=== PATIENT | female | born 1985 | race Caucasian/White ===

== ENCOUNTER 2022-06-23 13:46 | Emergency (ER) | payer OTHER, SELFPAY ==
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
[2022-06-23 14:03] VITALS: BP 117/81; BP 118/73; PULSE 88; PULSE 94; RESP 18; O2SAT 100; BMI 29.5
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
[2022-06-23] MEDS: Acetaminophen 325 MG TABLET 975 MG PO (14:12)
== END 2022-06-23 16:18 | disposition home or self-care (01) ==
PROVIDERS: Emergency Provider Emergency Medicine
DX: S16.1XXA Strain of muscle, fascia and tendon at neck level, initial encounter (principal); S09.90XA Unspecified injury of head, initial encounter; M54.2 Cervicalgia; R51.9 Headache, unspecified; V43.52XA Car driver injured in collision with other type car in traffic accident, initial encounter; Y93.9 Activity, unspecified; Y92.410 Unspecified street and highway as the place of occurrence of the external cause; Y99.9 Unspecified external cause status
CPT/HCPCS: 70450; 72125; 99284

== ENCOUNTER 2022-11-23 23:25 | Emergency (ER) | payer OTHER, SELFPAY ==
--- NOTE | 2022-11-23 | ECG_ITS ---
Test Reason : unknown substance Blood Pressure : / mmHG Vent. Rate : 080 BPM Atrial Rate : 080 BPM P-R Int : 134 ms QRS Dur : 084 ms QT Int : 364 ms P-R-T Axes : 061 034 006 degrees QTc Int : 419 ms Normal sinus rhythm Normal ECG No previous ECGs available Referred By: Marshall Causey Electronically Signed By:THAIS DURAN
--- NOTE | ~2022-11-23 | XR_ITS ---
EXAMINATION: XR CHEST CLINICAL INFORMATION: Hypoxia. COMPARISON: None available. TECHNIQUE: Frontal view of the chest was obtained. FINDINGS: The lung volumes are low. The cardiomediastinal silhouette is within normal limits. There is no focal lung consolidation or pleural effusion. The bony structures and soft tissues are unremarkable. XR/XR chest 1V IMPRESSION: Low lung volumes limits evaluation. No evidence for active cardiopulmonary disease.
--- NOTE | ~2022-11-23 | CT_ITS ---
EXAMINATION: CT HEAD WITHOUT CONTRAST CT CERVICAL SPINE WITHOUT CONTRAST CLINICAL INFORMATION: Found down. Unresponsive. COMPARISON: None available. TECHNIQUE: Contiguous axial imaging was performed through the head and cervical spine without intravenous administration of contrast. Sagittal and coronal reformatted images also obtained. This CT examination was performed using dose optimization techniques as appropriate, variously including the following: *Automated exposure control *Adjustment of mA and/or kV according to patient size (this includes techniques or standardized protocols for targeted exams where dose is matched to indication/reason for exam; i.e. extremities or head) *Use of iterative reconstruction technique DLP: 1342 mGy-cm FINDINGS: Motion slightly limits evaluation. Head: The lateral, third and fourth ventricles are normally outlined. The cortical sulci and basal cisterns are normally outlined as well. There is no acute territorial defect, hemorrhage or midline shift. The extra-axial spaces are unremarkable. Calvarium: Intact. Maxillofacial sinuses and mastoids: Clear as visualized. Cervical spine: The vertebral bodies are normally aligned. The disc spaces are maintained. The bone mineralization is normal. The vertebral body heights are maintained. The spinal canal and neuroforamen are patent. Soft tissues are unremarkable. The visualized upper lung swan are clear. CT/CT head/brain wo IV con IMPRESSION: Minimal motion slightly limits evaluation. No acute intracranial abnormality. No fracture of the cervical spine.
--- NOTE | ~2022-11-23 | CT_ITS ---
EXAMINATION: CT HEAD WITHOUT CONTRAST CT CERVICAL SPINE WITHOUT CONTRAST CLINICAL INFORMATION: Found down. Unresponsive. COMPARISON: None available. TECHNIQUE: Contiguous axial imaging was performed through the head and cervical spine without intravenous administration of contrast. Sagittal and coronal reformatted images also obtained. This CT examination was performed using dose optimization techniques as appropriate, variously including the following: *Automated exposure control *Adjustment of mA and/or kV according to patient size (this includes techniques or standardized protocols for targeted exams where dose is matched to indication/reason for exam; i.e. extremities or head) *Use of iterative reconstruction technique DLP: 1342 mGy-cm FINDINGS: Motion slightly limits evaluation. Head: The lateral, third and fourth ventricles are normally outlined. The cortical sulci and basal cisterns are normally outlined as well. There is no acute territorial defect, hemorrhage or midline shift. The extra-axial spaces are unremarkable. Calvarium: Intact. Maxillofacial sinuses and mastoids: Clear as visualized. Cervical spine: The vertebral bodies are normally aligned. The disc spaces are maintained. The bone mineralization is normal. The vertebral body heights are maintained. The spinal canal and neuroforamen are patent. Soft tissues are unremarkable. The visualized upper lung swan are clear. CT/CT cervical spine wo IV con IMPRESSION: Minimal motion slightly limits evaluation. No acute intracranial abnormality. No fracture of the cervical spine.
[2022-11-23 23:51] VITALS: BP 121/83; PULSE 99; O2SAT 100; BMI 28.9
[2022-11-24] VITALS (7 sets, daily range): BP systolic 88–115; BP diastolic 49–74; PULSE 73–83; RESP 14–17; TEMP 36.7; O2SAT 96–100
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
--- NOTE | 2022-11-24 01:05 | PC.NURSE ---
unable to obtain blood samples
--- NOTE | 2022-11-24 01:05 | MHC.EDTECH ---
t/w attempted labs x2, both straight stick and finger stick. unable to get blood. rn kiwon aware
[2022-11-24] MEDS: 0.9 % Sodium Chloride 1,000 ML 999 ML IV (01:47)
[2022-11-24 02:01] LABS: MANUAL DIFF FLAG NO
[2022-11-24 02:02] LABS: Basophils Percent Auto 0.5 % (0-2); Eosinophils Percent Auto 0.3 % (0-4); Hematocrit 35.2 % (37.0-47.0); Hemoglobin 11.6 g/dl (12.0-16.0); Imm Gran Abs Auto 0.01 X10*3/uL (0.00-0.03); Imm Gran Pct Auto 0.2 % (0.0-0.4); Lymphocytes Absolute Auto 1.3 X10*3/uL (1.2-4.9); Mean Corpuscular Hemoglobin 31.8 pg (27.0-33.0); Mean Corpuscular Volume 96.4 fL (80.0-98.0); Monocytes Absolute Auto 0.5 X10*3/uL (0.1-1.2); Monocytes Percent Auto 8.2 % (2-11); Neutrophils Percent Auto 68.8 % (45-73); Platelet Count 247 X10*3/uL (160-400); Red Blood Count 3.65 X10*6/uL (4.20-5.50); Red Cell Distribution Width 12.2 % (11.0-16.0); White Blood Count 5.8 X10*3/uL (4.8-10.8)
--- NOTE | 2022-11-24 02:03 | PC.NURSE ---
2nd iv site established, labs obtained by PA via ultrasound
[2022-11-24 02:17] LABS: Ethanol 176 mg/dL
[2022-11-24 02:24] LABS: Alanine Aminotransferase 15 U/L (0-31); Albumin Level 4.2 g/dL (3.5-5.0); Alkaline Phosphatase 65 U/L (39-117); Anion Gap 12 (12-20); Aspartate Amino Transferase 19 U/L (5-31); Bilirubin Direct 0.1 mg/dL (0.0-0.5); Bilirubin Total 0.3 mg/dL (0.0-1.0); Blood Urea Nitrogen 9 mg/dL (9-16); Calcium 9.3 mg/dL (8.4-10.2); Carbon Dioxide 23 mmol/L (22-29); Chloride 110 mmol/L (96-108); Creatinine Clr Calc Pharmacy 73.4; Estimated Glomerular Filt Rate 59; Glucose Random 105 mg/dL (60-115); Magnesium 2.2 mg/dL (1.6-2.6); Potassium 3.4 mmol/L (3.3-5.1); Sodium 142 mmol/L (135-145); Total Protein 7.3 g/dL (6.5-8.0)
[2022-11-24 04:59] LABS: Amphetamine Screen Urine Not Detected (Not Detect); Barbiturates, Urine Not Detected (Not Detect); Benzodiazepines Screen Urine Not Detected (Not Detect); Cannabinoid Screen Urine Not Detected (Not Detect); Cocaine Screen Urine Not Detected (Not Detect); Fentanyl, urine Not Detected (Not Detect); Opiate Screen Urine Not Detected (Not Detect); Phencyclidine Screen Urine Not Detected (Not Detect)
--- NOTE | 2022-11-24 05:06 | PC.NURSE ---
pt oob , ambulated in halls, gait steady, tolerating po fluids. pt reported she is depressed, denies any SI/HI
[2022-11-24 05:35] LABS: Appearance Urine Clear; Color Urine Yellow; Glucose Urine UA Negative (Negative); Leukocyte Esterase Urine Negative (Negative); Nitrite Urine Negative (Negative); PH 5.5 (5.0-9.0); Urine Blood Negative (Negative); Urine Ketones Negative (Negative); Urine Protein Negative (Neg-Trace)
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
--- NOTE | 2022-11-24 09:00 | PC.NURSE ---
care team at bedside
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
== END 2022-11-24 10:22 | disposition still patient (30) ==
PROVIDERS: Physician Assistant; Emergency Provider Internal Medicine
DX: F10.129 Alcohol abuse with intoxication, unspecified (principal); R40.4 Transient alteration of awareness; R09.02 Hypoxemia; R11.2 Nausea with vomiting, unspecified; R51.9 Headache, unspecified; M54.2 Cervicalgia; R06.02 Shortness of breath; Y90.6 Blood alcohol level of 120-199 mg/100 ml; Z79.899 Other long term (current) drug therapy
CPT/HCPCS: 36415; 70450; 71045; 72125; 80048; 80076; 80307; 81003; 82550; 83735; 85025; 93005; 96360; 99285

== ENCOUNTER 2023-07-20 15:55 | Emergency (ER) | payer OTHER, SELFPAY ==
--- NOTE | 2023-07-20 | ECG_ITS ---
Test Reason : SLOW HEART RATE Blood Pressure : / mmHG Vent. Rate : 081 BPM Atrial Rate : 081 BPM P-R Int : 126 ms QRS Dur : 076 ms QT Int : 350 ms P-R-T Axes : 054 036 026 degrees QTc Int : 406 ms Normal sinus rhythm Normal ECG When compared with ECG of 23-NOV-2022 23:54, No significant change was found Referred By: Generic ED Physician Electronically Signed By:PATRICIA SHEPPARD
[2023-07-20 16:41] VITALS: BP 117/78; PULSE 87; RESP 18; TEMP 36.7; O2SAT 99; BMI 28.3
--- NOTE | 2023-07-20 16:46 | ED.GENADULT ---
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 Patient states that over the last day she has felt generally unwell with nausea, vomiting, and intermittent dizziness. Patient denies any lightheadedness, abdominal pain, fever, chills, blurry vision, double vision, loss of vision, chest pain, difficulty breathing, shortness of breath, back pain, night sweats, pain with urination, increased urinary frequency, increased urinary urgency, blood in her urine or stool, syncope or a near syncopal episode, recent trauma or falls, bowel incontinence, bladder incontinence, bowel retention, bladder retention, or any other complaints at this time. Onset (ago): day(s) Relieving factors: none Exacerbating factors: none Associated symptoms: nausea/vomiting Treatments prior to arrival: none Related Data Home Medications ?Medication ?Instructions ?Recorded ?Confirmed dolutegravir 50 mg tablet (Tivicay) 50 mg PO DAILY 11/24/22 11/24/22 emtricitabine 200 mg-tenofovir 1 tab PO DAILY 11/24/22 11/24/22 disoproxil fumarate 300 mg tablet Allergies Allergy/AdvReac Type Severity Reaction Status Date / Time No Known Allergies Allergy Verified 07/20/23 16:42 Review of Systems Constitutional: Constitutional: Reports no additional constitutional complaints, Denies chills, Denies fever(s) and Denies night sweats Eyes: Eyes: Reports no additional eye complaints, Denies blurry vision, Denies change in vision, Denies diplopia, Denies eye discharge, Denies loss of vision and Denies eye pain ENT: Reports dizziness (intermittent) Cardiovascular: Cardiovascular: Reports no additional cardiovascular complaints, Denies chest pain, Denies lightheadedness, Denies Loss of Consciousness and Denies dyspnea Respiratory: Respiratory: Reports no additional respiratory complaints and Denies dyspnea Gastrointestinal: Gastrointestinal: Reports no additional gastrointestinal complaints, Denies abdominal pain, Denies melena, Denies hematochezia, Denies change in bowel habits, Denies change in stool character, Reports nausea and Reports vomiting Genitourinary: Genitourinary: Denies hematuria, Denies urinary frequency, Denies dysuria, Denies urinary incontinence, Denies urinary hesitancy and Denies urinary urgency Musculoskeletal: Musculoskeletal: Reports no additional musculoskeletal complaints, Denies numbness and Denies tingling Neurologic: Reports dizziness (intermittent), Denies loss of vision, Denies numbness and Denies tingling Psychiatric: Psychiatric: Reports no additional psychiatric complaints Endocrine: Endocrine: Reports no additional endocrine complaints Hematologic/Lymphatic: Hematologic/Lymphatic: Reports no additional hematologic/lymphatic complaints Allergic/Immunologic: Allergic/Immunologic: Reports no additional allergic/immunologic complaints PMFSH Past Medical History Attestation statement: The following information was validated with the patient. Source: old records reviewed and nursing notes reviewed Social History Social History Alcohol intake: current Advance Directives: No Advance Directives Information Provided: No Do you have a plan to hurt others: No Plan Physical Exam ED Vital Signs: Vital Signs - 24 hr 07/20/23 16:41 07/20/23 18:15 07/20/23 20:00 Temperature 98.1 F 98.7 F 98.0 F Pulse Rate 87 80 78 Respiratory Rate 18 16 18 Blood Pressure 117/78 112/78 110/65 Pulse Oximetry 99 100 100 Oxygen Delivery Method Room Air Room Air Room Air 07/20/23 20:16 Temperature 98.0 F Pulse Rate 78 Respiratory Rate 18 Blood Pressure 110/65 Pulse Oximetry 100 Oxygen Delivery Method Room Air BMI result Body Mass Index 28.3 Const General: cooperative, no acute distress, alert and awake Nutritional Appearance: well nourished Orientation/consciousness: patient oriented x3 Limitations: no limitations HENMT Head: Yes normal to inspection and Yes atraumatic Ears: hearing grossly normal bilaterally and external ears normal General nose exam: Normal external nose present, no nasal discharge noted and no epistaxis Face and sinus: Yes normal facial exam, No abrasion and No laceration Mouth: Normal oral and palatal mucosa present, no drooling and no muffled voice Eyes General: appearance normal, both eyes and all related structures Periorbital: periorbital findings normal Eyelids: Yes eyelids normal Conjunctivae: conjunctivae normal Pupils: Equal, round and reactive pupils present EOM: EOMs intact bilaterally Neck Neck: Yes normal visual inspection, Yes full ROM and Yes no lymphadenopathy Chest Chest palpation & inspection: normal inspection of the chest Resp Effort & Inspection: normal respiratory effort and able to speak in complete sentences GI Inspection: Yes normal to inspection Palpation (GI): Soft to palpation, not firm, nontender and no guarding Neuro General: patient oriented x3 and moves all extremities Cranial nerves: Yes Equal, round and reactive pupils present Cognition (Neuro): normal cognition Motor exam (neuro): 5/5 motor strength present throughout Sensory Exam: Normal double simultaneous stimulation for sensation Coordination: [id number] test normal Extrem General: Yes normal to inspection, Yes full ROM and Yes capillary refill normal Psych Appearance: grossly normal Mental Status: mental status grossly normal Affect: normal affect Attitude: cooperative Thought process: Normal thought process present Thought content: Normal thought content present Insight: Good insight present (Psych) Course Course Course Narrative: RME: 37-year-old female presents to ED sensation of heart beating slow, nausea vomiting diarrhea. Labs EKG ordered. Patient to be evaluated ED Medications Administered Discontinued Medications Generic Name Dose Route Start Last Admin Trade Name Freq PRN Reason Stop Dose Admin Sodium Chloride 1,000 mls @ 999 mls/hr 07/20/23 18:15 07/20/23 19:05 Ns IV 07/20/23 19:15 999 mls/hr .Q1H1M HUSSAIN Administration Ondansetron HCl 4 mg 07/20/23 18:10 07/20/23 19:20 Ondansetron Hcl 4 Mg/2 Ml Vial IVPUSH 07/20/23 18:11 4 mg ONCE ONE Administration Medical Decision Making Medical Decision Making [facility] Narrative: Patient is a 37 year old assigned female at with no reported medical history presenting to the emergency department today with dizziness, nausea, and vomiting. Patient's physical exam was unremarkable. Patient's blood work was unremarkable. Patient's urine showed no acute process. Patient's EKG was unremarkable. I explained my physical exam findings as well as all test results to the patient. I answered all questions asked by the patient. I stressed the importance of the patient taking her medication as prescribed. I stressed the importance of the patient following up with her primary care provider. I stressed the importance of the patient returning to the emergency department immediately if her symptoms were to worsen or if she were to develop any dizziness, shortness of breath, difficulty breathing, chest pain, blurry vision, loss of vision, nausea, vomiting, abdominal pain, fever, chills, back pain, or any other complaints. Patient verbalized agreement and understanding with this treatment plan and discharge. Differential Diagnosis Differential Diagnoses: The differential diagnosis associated with the presentation includes Near syncopal episode Dizziness Nausea Vomiting Admission/Observation Consideration of admission/observation: Escalation of care including admission/observation considered Patient would have been admitted to the hospital had her work up had any findings where hospital admission was appropriate and her clinical presentation warranted hospital admission. Lab Data [facility] Lab Attestation statement: I reviewed the patient's lab results. My interpretation of these results are in the [facility] Rationale portion of this note. 07/20/23 17:06 07/20/23 17:06 Labs: Lab Results 07/20/23 07/20/23 07/20/23 Range/Units 17:06 17:58 18:09 WBC 5.0 (4.8-10.8) X10*3/uL RBC 4.25 (4.20-5.50) X10*6/uL Hgb 13.5 (12.0-16.0) g/dl Hct 42.1 (37.0-47.0) % MCV 99.1 H (80.0-98.0) fL MCH 31.8 (27.0-33.0) pg MCHC 32.1 (31.0-35.0) g/dl RDW 11.9 (11.0-16.0) % Plt Count 224 (160-400) X10*3/uL MPV 12.9 H (9.4-12.3) fL Immature Gran % (Auto) 0.2 (0.0-0.4) % Neut % (Auto) 59.7 (45-73) % Lymph % (Auto) 28.9 (20-40) % [place] % (Auto) 9.2 (2-11) % Eos % (Auto) 1.2 (0-4) % Baso % (Auto) 0.8 (0-2) % Lymph # (Auto) 1.5 (1.2-4.9) X10*3/uL [place] # (Auto) 0.5 (0.1-1.2) X10*3/uL Eos # (Auto) 0.1 (0.0-0.4) X10*3/uL Baso # (Auto) 0.0 (0.0-0.2) X10*3/uL Abs Immat Gran (auto) 0.01 (0.00-0.03) X10*3/uL Absolute Neuts (auto) 3.0 (2.0-8.3) x10*3/uL Absolute Nucleated RBC 0.000 (0.0-0.012) X10*3/uL Nucleated RBC % (auto) 0.0 (0.0-0.2) /100WBC PT 12.2 (11.1-13.3) SEC INR 1.0 (0.9-1.1) APTT 30.2 (26.0-36.8) SEC Sodium 138 (135-145) mmol/L Potassium 3.9 (3.3-5.1) mmol/L Chloride 108 (96-108) mmol/L Carbon Dioxide 22 (22-29) mmol/L Anion Gap 12 (12-20) BUN 10 (9-16) mg/dL Creatinine 0.79 (0.5-1.4) mg/dL Estim Creat Clear Calc 90.3 Estimated GFR > 60 Random Glucose 103 (60-115) mg/dL Calcium 9.7 (8.4-10.2) mg/dL Total Bilirubin 0.4 (0.0-1.0) mg/dL AST 25 (5-31) U/L ALT 26 (0-31) U/L Alkaline Phosphatase 78 (39-117) U/L Troponin I High Sens < 2.7 (<3.5-17.0) ng/L Total Protein 8.0 (6.5-8.0) g/dL Albumin 4.4 (3.5-5.0) g/dL Beta HCG, Quant < 2 mIU/mL Urine Color Yellow Urine Appearance Cloudy Urine pH 6.0 (5.0-9.0) Ur Specific [place] 1.015 (1.005-1.025) Urine Protein Negative (Neg-Trace) mg/dL Urine Glucose (UA) Negative (Negative) mg/dL Urine Ketones Negative (Negative) mg/dL Urine Blood Negative (Negative) Urine Nitrite Negative (Negative) Ur Leukocyte Esterase Negative (Negative) Influenza Type A (PCR) NEGATIVE (Negative) Influenza Type B (PCR) NEGATIVE (Negative) RSV RNA Qual (PCR) NEGATIVE (Negative) SARS-CoV-2 RNA (RT-PCR) NEGATIVE (Negative) Independent Interpretation I performed an independent interpretation of an: EKG Interpretation: Vent. Rate: 081 BPM Atrial Rate: 081 BPM P-R Int: 126 ms QRS Dur: 076 ms QT Int: 350 ms P-R-T Axes: 054 036 026 degrees QTc Int: 406 ms Normal sinus rhythm Normal ECG When compared with ECG of 23-NOV-2022 23:54, No significant change was found DD/ 1606 Discharge Plan Discharge Clinical Impression: Nausea, Near syncope Patient Disposition: Home, Self-Care Instructions: Acute Nausea and Vomiting (ED), Near Syncope (ED) Additional Instructions: Follow up with your primary care provider. Return to the emergency department immediately if your symptoms worsen or if you develop any dizziness, shortness of breath, difficulty breathing, chest pain, blurry vision, loss of vision, nausea, vomiting, abdominal pain, fever, chills, back pain, or any other complaints. Prescriptions: No Action emtricitabine-tenofovir (TDF) 200-300 mg tablet 1 tab PO DAILY Tivicay 50 mg tablet 50 mg PO DAILY Referrals: [facility] [Provider Group] (Call to establish and follow up with a primary care provider. If you already have a primary care provider, please follow up with them.) [facility] [Provider Group] [facility] [Provider Group] Stand Alone Forms: Work/School Release Interventions: ED Discharge Assessment Last Done: 07/20/23 20:16 Discharge Date/Time: 07/20/23 20:17 Print Language: Icelandic
[2023-07-20 17:11] LABS: MANUAL DIFF FLAG NO
[2023-07-20 17:22] LABS: Basophils Percent Auto 0.8 % (0-2); Eosinophils Absolute Auto 0.1 X10*3/uL (0.0-0.4); Eosinophils Percent Auto 1.2 % (0-4); Hematocrit 42.1 % (37.0-47.0); Hemoglobin 13.5 g/dl (12.0-16.0); Imm Gran Abs Auto 0.01 X10*3/uL (0.00-0.03); Imm Gran Pct Auto 0.2 % (0.0-0.4); Lymphocytes Absolute Auto 1.5 X10*3/uL (1.2-4.9); Lymphocytes Percent Auto 28.9 % (20-40); Mean Corpuscular HGB Conc 32.1 g/dl (31.0-35.0); Mean Corpuscular Hemoglobin 31.8 pg (27.0-33.0); Mean Corpuscular Volume 99.1 fL (80.0-98.0); Mean Platelet Volume 12.9 fL (9.4-12.3); Monocytes Absolute Auto 0.5 X10*3/uL (0.1-1.2); Monocytes Percent Auto 9.2 % (2-11); Neutrophils Percent Auto 59.7 % (45-73); Platelet Count 224 X10*3/uL (160-400); Red Blood Count 4.25 X10*6/uL (4.20-5.50); Red Cell Distribution Width 11.9 % (11.0-16.0)
[2023-07-20 17:36] LABS: Alanine Aminotransferase 26 U/L (0-31); Albumin Level 4.4 g/dL (3.5-5.0); Alkaline Phosphatase 78 U/L (39-117); Anion Gap 12 (12-20); Aspartate Amino Transferase 25 U/L (5-31); Bilirubin Total 0.4 mg/dL (0.0-1.0); Blood Urea Nitrogen 10 mg/dL (9-16); Calcium 9.7 mg/dL (8.4-10.2); Carbon Dioxide 22 mmol/L (22-29); Chloride 108 mmol/L (96-108); Creatinine Clr Calc Pharmacy 90.3; Estimated Glomerular Filt Rate > 60; Glucose Random 103 mg/dL (60-115); Potassium 3.9 mmol/L (3.3-5.1); Sodium 138 mmol/L (135-145)
[2023-07-20 17:38] LABS: HCG Quantitative < 2 mIU/mL
[2023-07-20 17:39] LABS: Troponin-I High Sensitivity < 2.7 ng/L (<3.5-17.0)
[2023-07-20 17:54] LABS: Influenza A PCR NEGATIVE (Negative); Influenza B PCR NEGATIVE (Negative); Resp Syncy Virus RNA Qual PCR NEGATIVE (Negative); SARS COV2 PCR INHOUSE NEGATIVE (Negative)
[2023-07-20 18:15] VITALS: BP 112/78; PULSE 80; RESP 16; TEMP 37.1; O2SAT 100
[2023-07-20 18:15] LABS: Appearance Urine Cloudy; Color Urine Yellow; Glucose Urine UA Negative (Negative); Leukocyte Esterase Urine Negative (Negative); Nitrite Urine Negative (Negative); Specific Gravity - Urine 1.015 (1.005-1.025); Urine Blood Negative (Negative); Urine Ketones Negative (Negative); Urine Protein Negative (Neg-Trace)
[2023-07-20 18:20] LABS: Prothrombin Time 12.2 SEC (11.1-13.3)
[2023-07-20 18:22] LABS: Partial Thromboplastin Time 30.2 SEC (26.0-36.8)
[2023-07-20] MEDS: 0.9 % Sodium Chloride 1,000 ML 999 ML IV (19:05)
[2023-07-20] MEDS: ondansetron HCL 4 MG/2 ML VIAL IVPUSH (19:20)
[2023-07-20 20:00] VITALS: BP 110/65; PULSE 78; RESP 18; TEMP 36.7; O2SAT 100
[2023-07-20 20:16] VITALS: BP 110/65; PULSE 78; RESP 18; TEMP 36.7; O2SAT 100
== END 2023-07-20 20:17 | disposition home or self-care (01) ==
PROVIDERS: Physician Assistant; Emergency Provider Internal Medicine
DX: R11.0 Nausea (principal); R55 Syncope and collapse; Z03.818 Encounter for observation for suspected exposure to other biological agents ruled out
CPT/HCPCS: 0241U; 36415; 80053; 81003; 84484; 84702; 85025; 85610; 85730; 93005; 96374; 99284; J2405

== ENCOUNTER → 2023-07-20 16:06 | Outpatient (BNV) | payer OTHER, SELFPAY | PROVIDERS: Emergency Provider Internal Medicine; Visit Provider Internal Medicine | DX: R00.8 Other abnormalities of heart beat (principal) | CPT/HCPCS: 93010 ==

== ENCOUNTER 2024-04-18 22:52 | Emergency (ER) | payer OTHER, SELFPAY ==
--- NOTE | ~2024-04-18 | XR_ITS ---
CLINICAL HISTORY: cough 1 view chest x-ray Comparison: CR/SR - XR CHEST 1V - 11/24/22 01:54 EDT Findings: No consolidation or effusion. Normal size heart. No acute fracture. IMPRESSION: 1. No acute findings. This document has been electronically signed by: Juan Rivera MD on 04/18/2024 23:46:57
[2024-04-18 22:55] VITALS: BP 110/71; PULSE 91; RESP 16; TEMP 36.8; O2SAT 99; BMI 28.2
[2024-04-18 23:51] LABS: Influenza A PCR NEGATIVE (Negative); Influenza B PCR NEGATIVE (Negative); Resp Syncy Virus RNA Qual PCR NEGATIVE (Negative); SARS COV2 PCR INHOUSE NEGATIVE (Negative)
--- NOTE | 2024-04-19 01:20 | ED_ITS ---
HPI - General Adult General Chief complaint: Upper Respiratory Symptoms Stated complaint: cold symptoms, chest pain Time Seen by Provider: 04/19/24 00:50 Source: patient, RN notes reviewed and old records reviewed Mode of arrival: ambulatory Limitations: no limitations History of Present Illness ED Provider: Brandin CURTIS narrative: 38-year-old female presents for evaluation of cough, nausea, headache and body aches. Her symptoms started 3 days ago. She denies any sick contacts. Denies any recent travel. She reports some chest pain with coughing. She states that there is no chance that she was , she lives alone. She reports some lower abdominal pain and burning with urination. She reports a history of constipation but reports that she has been having more bowel movements than usual Related Data Home Medications ?Medication ?Instructions ?Recorded ?Confirmed dolutegravir 50 mg tablet (Tivicay) 50 mg PO DAILY 11/24/22 11/24/22 emtricitabine 200 mg-tenofovir 1 tab PO DAILY 11/24/22 11/24/22 disoproxil fumarate 300 mg tablet Previous Rx's ?Medication ?Instructions ?Recorded cefuroxime axetil 250 mg tablet 250 mg PO Q12H #10 tabs 04/19/24 Allergies Allergy/AdvReac Type Severity Reaction Status Date / Time No Known Allergies Allergy Verified 04/18/24 22:56 Review of Systems Constitutional: Constitutional: Reports body ache(s), Reports chills, Denies fever(s), Reports headache(s), Reports malaise and Reports weakness Eyes: Eyes: Denies blurry vision ENT: Reports headache(s) and Denies sore throat Cardiovascular: Cardiovascular: Reports chest pain and Denies dyspnea Respiratory: Respiratory: Reports cough and Denies dyspnea Gastrointestinal: Gastrointestinal: Denies abdominal pain, Denies diarrhea, Denies loose stools, Reports nausea and Denies vomiting Musculoskeletal: Musculoskeletal: Denies back pain Integumentary/Breasts: Skin/Breast: Denies rash Neurologic: Reports headache(s) and Reports weakness PMFSH Social History Social History Alcohol intake: current Advance Directives: No Advance Directives Information Provided: Yes Do you have a plan to hurt others: No Plan Physical Exam ED Vital Signs: Vital Signs - 24 hr 04/18/24 22:55 Temperature 98.2 F Pulse Rate 91 Respiratory Rate 16 Blood Pressure 110/71 Pulse Oximetry 99 Oxygen Delivery Method Room Air BMI result Body Mass Index 28.2 Const General: healthy appearing, comfortable, no acute distress, alert and awake Nutritional Appearance: well nourished Orientation/consciousness: patient oriented x3 HENMT Head: Yes normocephalic and Yes atraumatic Throat: Yes posterior oropharynx normal Eyes Eyelids: Yes eyelids normal Conjunctivae: conjunctivae normal Sclerae: sclerae normal Corneas: corneas normal Pupils: Equal, round and reactive pupils present EOM: EOMs intact bilaterally Neck Neck: Yes full ROM Resp Effort & Inspection: normal respiratory effort, able to speak in complete sentences, no audible wheezes and not labored Auscultation: clear to auscultation bilaterally Cardio Rate: regular rate Rhythm: regular rhythm GI Inspection: No distended Palpation (GI): Soft to palpation, not firm, nontender, no guarding and not rigid Skin General skin exam: elasticity normal Neuro General: patient oriented x3 Cranial nerves: Yes Equal, round and reactive pupils present and Yes Bilaterally intact EOM present Cognition (Neuro): normal cognition Extrem Other: Moving all extremities well without any obvious deformities Medical Decision Making Medical Decision Making [facility] Narrative: 38-year-old female presents for evaluation of multiple complaints including flu- like symptoms, her viral swabs were negative. Her chest x-ray was clear, no evidence of pneumonia or pleural effusions. She also complains of lower abdominal pain and burning with urination added on a urinalysis and a test. The patient is adamant that she was not . She is quite well appearing with stable vital signs. Her symptoms are most likely related to a viral illness. She has no abdominal tenderness on exam to suggest infectious process or surgical abdomen Differential Diagnosis Differential Diagnoses: The differential diagnosis associated with the presentation includes Abdominal pain Viral syndrome UTI Constipation Influenza Lab Data [facility] Lab Attestation statement: I reviewed the patient's lab results. Patient's urinalysis consistent with a UTI Labs: Lab Results 04/18/24 04/19/24 Range/Units 22:59 01:38 Urine Color Yellow Urine Appearance Cloudy Urine pH 5.5 (5.0-9.0) Ur Specific [place] 1.025 (1.005-1.025) Urine Protein Trace (Neg-Trace) mg/dL Urine Glucose (UA) Negative (Negative) mg/dL Urine Ketones Negative (Negative) mg/dL Urine Blood Trace H (Negative) Urine Nitrite Positive H (Negative) Ur Leukocyte Esterase Small (1+) H (Negative) Urine RBC 0-2 (0-2) /HPF Urine WBC 21-50 H (0-5) /HPF Ur Squamous Epith Cells 11-20 (0-2) /HPF Urine Bacteria 4+ (None Seen) Hyaline Casts 0-2 (0-2) /LPF Urine Test NEGATIVE (NEGATIVE) Influenza Type A (PCR) NEGATIVE (Negative) Influenza Type B (PCR) NEGATIVE (Negative) RSV RNA Qual (PCR) NEGATIVE (Negative) SARS-CoV-2 RNA (RT-PCR) NEGATIVE (Negative) Independent Interpretation I performed an independent interpretation of an: Plain X-Ray Interpretation: No focal infiltrates Radiology Impression Discussion of test interpretation with radiology: I have reviewed the radiologist's reading. Radiologist Impression: Findings: No consolidation or effusion. Normal size heart. No acute fracture. IMPRESSION: 1. No acute findings. This document has been electronically signed by: Juan Rivera MD on 04/18/2024 23:46:57 Discharge Plan Discharge Clinical Impression: Urinary tract infection Patient Disposition: Home, Self-Care Instructions: Urinary Tract Infection in Women (ED) Additional Instructions: You have a urinary tract infection. Take cefuroxime twice daily for the next 5 days. Drink lots of fluids. Follow-up with your primary doctor, return for new or worsening symptoms Prescriptions: New cefuroxime axetil 250 mg tablet 250 mg PO Q12H Qty: 10 0RF No Action emtricitabine-tenofovir (TDF) 200-300 mg tablet 1 tab PO DAILY Tivicay 50 mg tablet 50 mg PO DAILY Print Language: Cape Verdean
[2024-04-19 01:47] LABS: Appearance Urine Cloudy; Color Urine Yellow; Glucose Urine UA Negative (Negative); Leukocyte Esterase Urine Small (1+) (Negative); Nitrite Urine Positive (Negative); PH 5.5 (5.0-9.0); Specific Gravity - Urine 1.025 (1.005-1.025); UMIC TRIGGER UACC YES; UPreg QC Valid YES; Urine Blood Trace (Negative); Urine Ketones Negative (Negative); Urine Pregnancy NEGATIVE (NEGATIVE); Urine Protein Trace mg/dL (Neg-Trace)
[2024-04-19 01:52] LABS: Bacteria Urine 4+ (None Seen); Hyaline Casts Urine 0-2 /LPF (0-2); RBC Urine 0-2 /HPF (0-2); UACC Culture Trigger YES; WBC Urine 21-50 /HPF (0-5)
[2024-04-19] MEDS: cefuroxime axetiL 250 MG TABLET PO (02:49)
[2024-04-19 02:57] VITALS: BP 112/65; PULSE 85; RESP 16; TEMP 36.8; O2SAT 100
--- NOTE | 2024-04-19 02:58 | PC.NURSE ---
pt denies sore throat.
[2024-04-19 03:01] VITALS: BP 112/65; PULSE 85; RESP 16; TEMP 36.8; O2SAT 100
== END 2024-04-19 03:03 | disposition home or self-care (01) ==
PROVIDERS: Physician Assistant; Emergency Provider Emergency Medicine Emergency Medical Services; PCP Family Medicine
DX: N39.0 Urinary tract infection, site not specified (principal); B96.20 Unspecified Escherichia coli [E. coli] as the cause of diseases classified elsewhere; R10.30 Lower abdominal pain, unspecified; R05.9 Cough, unspecified; Z03.818 Encounter for observation for suspected exposure to other biological agents ruled out
CPT/HCPCS: 0241U; 71045; 81001; 81025; 87086; 87088; 87186; 99283; 99284

== ENCOUNTER → 2024-04-18 23:00 | Outpatient (BNV) | payer OTHER, SELFPAY | PROVIDERS: Visit Provider Student in an Organized Health Care Education/Training Program | DX: R07.9 Chest pain, unspecified (principal) | CPT/HCPCS: 71045 ==

== ENCOUNTER 2025-01-11 05:18 | Inpatient (IN) | payer OTHER, SELFPAY ==
[2025-01-11] VITALS (8 sets, daily range): BP systolic 92–111; BP diastolic 49–69; PULSE 64–87; RESP 16–18; TEMP 36.6–37; O2SAT 96–100; BMI 30.5; BMI 31.4
--- NOTE | ~2025-01-11 | NM_ITS ---
EXAMINATION: NM BILIARY TRACT CLINICAL INFORMATION: Upper abdominal pain COMPARISON: Ultrasound abdomen performed earlier today at 6:24 AM TECHNIQUE: Following intravenous administration of 5 mCi of technetium 99m mebrofenin, imaging over right upper quadrant were obtained up to 60 minutes. At 60 minutes 1.5 mcg of CCK was given and further imaging was obtained up to 30 minutes. FINDINGS: There is normal hepatic uptake without focal defects. CBD is visualized by 13 minutes. Gallbladder is visualized by 19 minutes. Post-CCK the gallbladder ejection fraction at 30 minutes is 13% and abnormal. On the preceding ultrasound patient has echogenic gallstones. NM/NM hepatobiliary w pharm IMPRESSION: Normal hepatic uptake. Patent cystic duct and CBD. Abnormal gallbladder ejection fraction of 13% at 30 minutes. Electronically signed by: Dl Villalobos MD 01/11/2025 04:00 PM EDT
--- NOTE | ~2025-01-11 | US_ITS ---
EXAMINATION: US ABDOMEN COMPLETE CLINICAL INFORMATION: Upper abdominal pain.. COMPARISON: None available. TECHNIQUE: Real-time ultrasound of the abdomen using grayscale technique. FINDINGS: PANCREAS: No peripancreatic fluid collections. ABDOMINAL AORTA: The proximal, mid, and distal segments are normal in caliber. INFERIOR VENA CAVA: Visualized portions are normal. LIVER: Liver measures 15 cm. Normal contour. Normal parenchyma. No solid or cystic lesion detected. No intrahepatic biliary ductal dilatation. GALLBLADDER: Fluid-filled. Gallbladder wall measures 3 mm. Trace of pericholecystic fluid. No sonographic Mayes sign elicited by the technologist. COMMON BILE DUCT: 4 mm. RIGHT KIDNEY: 10 cm. Normal echotexture. Normal renal cortical thickness. No hydronephrosis. There is a 1.6 cm anechoic lesion at the corticomedullary junction renal cortex of the midportion without color Doppler flow interrogation. LEFT KIDNEY: 10 cm. Normal echotexture. Normal renal cortical thickness. No hydronephrosis. No gross solid or cystic lesion.. SPLEEN: 11 cm. FREE FLUID: None. US/US abdomen complete IMPRESSION: Concerning acalculous cholecystitis versus hepatitis versus prolonged fasting. 1.6 cm cyst, right kidney. Electronically signed by: Dustin Hall MD 01/11/2025 09:02 AM EDT
--- NOTE | 2025-01-11 05:19 | ECG_ITS ---
Test Reason : chest pain Blood Pressure : */* mmHG Vent. Rate : 81 BPM Atrial Rate : 81 BPM P-R Int : 132 ms QRS Dur : 76 ms QT Int : 354 ms P-R-T Axes : 64 53 40 degrees QTcB Int : 411 ms Normal sinus rhythm with sinus arrhythmia Normal ECG When compared with ECG of 20-Jul-2023 16:06, No significant change was found Referred By: Generic ED Physician Electronically Signed By: JOBY CORDOVA MD
[2025-01-11 06:00] LABS: MANUAL DIFF FLAG NO
[2025-01-11 06:01] LABS: Hematocrit 38.8 % (37.0-47.0); Hemoglobin 12.4 g/dl (12.0-16.0); Imm Gran Abs Auto 0.02 X10*3/uL (0.00-0.03); Imm Gran Pct Auto 0.3 % (0.0-0.4); Lymphocytes Absolute Auto 1.8 X10*3/uL (1.2-4.9); Mean Corpuscular HGB Conc 32.0 g/dl (31.0-35.0); Mean Corpuscular Hemoglobin 30.6 pg (27.0-33.0); Mean Corpuscular Volume 95.8 fL (80.0-98.0); NRBC Abs Auto 0.000 X10*3/uL (0.0-0.012); NRBC Pct Auto 0.0 /100WBC (0.0-0.2); Platelet Count 229 X10*3/uL (160-400); Red Blood Count 4.05 X10*6/uL (4.20-5.50); White Blood Count 6.6 X10*3/uL (4.8-10.8)
--- NOTE | 2025-01-11 06:11 | PC.NURSE ---
PT from triage complaining of epigastric pain, substernal chest pain, and a headache. PT rated all pain 10/10 and reported these symptoms onset x3 weeks ago and have been intermittent since, denies N/V/D. NSR ON TELE
[2025-01-11 06:21] LABS: COVID-19 Test Negative (Negative); IDNOW Serial# 55D5AD1C; IDNOW Serial# 58CA691E; Influenza B2 Negative (Negative)
--- NOTE | 2025-01-11 06:24 | ED.CHESTPAIN ---
HPI - Chest Pain General Chief Complaint: Chest Pain Stated Complaint: Chest, back, upper abd pain Time Seen by Provider: 01/11/25 06:13 Source: patient Mode of arrival: ambulatory Limitations: no limitations History of Present Illness ED Provider: DR. Billings HPI narrative: 39-year-old female came in for evaluation of chest pain/upper abdominal pain x2 weeks unclear aggravating factors, unclear relieving factors, no nausea, vomiting, diarrhea, no dysuria, no frequency urination, normal bowel movement this morning patient reports last bowel movement was no blood and normal color but sometimes has a black bowel movement. Admits to drinking alcohol few times a week last drink was 2 days ago, no surgical history,, no vomiting blood. Related Data Home Medications ?Medication ?Instructions ?Recorded ?Confirmed dolutegravir 50 mg tablet (Tivicay) 50 mg PO DAILY 11/24/22 11/24/22 emtricitabine 200 mg-tenofovir 1 tab PO DAILY 11/24/22 11/24/22 disoproxil fumarate 300 mg tablet Previous Rx's ?Medication ?Instructions ?Recorded cefuroxime axetil 250 mg tablet 250 mg PO Q12H #10 tabs 04/19/24 Allergies Allergy/AdvReac Type Severity Reaction Status Date / Time No Known Allergies Allergy Verified 01/11/25 05:30 Review of Systems Review of Systems: All other systems are reviewed and are negative Constitutional: Reports as per HPI and Reports no additional constitutional complaints Eyes: Reports as per HPI and Reports no additional eye complaints Reports system reviewed and no additional complaints, except as documented Cardiovascular: Reports as per HPI and Reports no additional cardiovascular complaints Respiratory: Reports as per HPI and Reports no additional respiratory complaints Gastrointestinal: Reports as per HPI and Reports no additional gastrointestinal complaints Genitourinary: Reports no additional female genitourinary complaints Musculoskeletal: Reports no additional musculoskeletal complaints Skin/Breast: Reports system reviewed and no additional complaints, except as docu Psychiatric: Reports no additional psychiatric complaints Endocrine: Reports no additional endocrine complaints Hematologic/Lymphatic: Reports no additional hematologic/lymphatic complaints Allergic/Immunologic: Reports no additional allergic/immunologic complaints Reports system reviewed and no additional complaints, except as documented and Reports Abnormal speech present FOR[facility] Social History Social History Alcohol intake: current Alcohol intake frequency: holidays/special occasions only Smoked in Last 30 Days: No Use of substances other than those prescribed or required for medical reasons: No Advance Directives: No Advance Directives Information Provided: Yes Do you have a plan to hurt others: No Plan Physical Exam Vital Signs: Vital Signs: Last Vital Signs Temp 97.8 F 01/11/25 10:48 Pulse 75 01/11/25 16:02 Resp 17 01/11/25 16:02 BP 98/63 01/11/25 16:02 Pulse Ox 96 01/11/25 16:02 O2 Del Method Room Air 01/11/25 16:02 BMI result Body Mass Index 30.5 Vital signs have been reviewed and appear to be correct. Blood pressure elevated. Heart rate normal. Respiratory rate normal. Temperature normal. Oxygen saturation normal. Appearance: Alert. Oriented X3. No acute distress. Head: Normal external exam. Normocephalic. Atraumatic. No Kc signs noted. No raccoon eyes noted Eyes: PERRLA. EOMI. Conjunctiva and sclera normal. Eyelids normal. ENT: TM's Normal. Pharynx normal. Uvula midline. Moist mucous membranes. No trismus noted. No drooling noted. No muffled voice noted. Neck: Normal inspection. Neck supple. FROM. No adenopathy. Thyroid Normal. No meningeal signs. No neck mass noted. CVS: Normal heart rate and rhythm. Heart sound normal. No murmurs noted. Pulses normal throughout. Respiratory: No respiratory distress. Painless inspiration. Breath sounds normal. No wheezes/rales/rhonchi noted. Chest nontender. No accessory muscle usage noted or decreased air movement noted. Abdomen: Soft, mild epigastric tenderness, no guarding, no rebound tenderness. Bowel sounds normal in all 4 quadrants. No distention noted. No organomegaly noted. No visible injury noted. Back: No CVA tenderness. Full range of motion noted. Skin: Skin warm and dry. Normal skin color. Normal skin turgor. No rashes/lesions/lacerations noted. Extremities: No lower extremity edema. Extremities exhibit normal range of motion. Extremities nontender. Neuro: Oriented X 3. Cranial nerve exam: II-XII are grossly intact No motor deficit. No sensory deficit. Reflexes normal. Course Reevaluation(s) Reevaluation #1: Abdominal pain, CT suggesting acalculous acute cholecystitis, case discussed with Dr. Adame who recommended HIDA scan, case discussed and signed out to Dr. Greco for check on the HIDA scan and consult with Dr. Adame. Time: 15:29 Reevaluation #2: Time: 17:24 Date: 01/11/25 Provider: Lester Greco MD I assumed care of this patient from my colleague, Dr. Billings at 16:00 hours patient presents emergency department for evaluation of upper abdominal pain and possible acute acalculous cholecystitis pending HIDA scan results. On my exam the patient did have right upper quadrant tenderness with a positive Mayes sign as well as mild diffuse abdominal tenderness. Radiologist that interpreted the HIDA scan states that there are echogenic gallstones and I did non the preceding ultrasound. Patient had a diminished gallbladder ejection fraction at 30 minutes of 13%. I did initially discuss these results with Dr. Adame and he did discuss admission with the patient. The patient wanted to discuss this with her family and after this discussion she is willing to stay in the hospital for management of her pain. She told me that she is having moderate right upper quadrant pain associated with mild nausea. Patient was given morphine 4 mg IV and Zofran 4 mg IV. I did discuss admission over tiger text with Dr. Adame and the patient will be admitted to his service for further treatment. Medications Administered Discontinued Medications Generic Name Dose Route Start Last Admin Trade Name Freq PRN Reason Stop Dose Admin Al Hydroxide/Mg Hydroxide 30 ml 01/11/25 06:21 01/11/25 06:44 Magnesium Hydrox/Alum Hydrox 30 Ml Oral.Susp PO 01/11/25 06:22 30 ml ONCE ONE Administration Famotidine 20 mg 01/11/25 06:21 01/11/25 06:44 Famotidine/Pf 20 Mg/2 Ml Vial IVPUSH 01/11/25 06:22 20 mg ONCE ONE Administration Ketorolac Tromethamine 15 mg 01/11/25 10:52 01/11/25 11:02 Ketorolac Tromethamine 15 Mg/Ml Vial IVPUSH 01/11/25 10:53 15 mg ONCE ONE Administration Sucralfate 1 gm 01/11/25 06:21 01/11/25 06:44 Sucralfate Oral Suspension 1 Gm/10 Ml Oral.Susp PO 01/11/25 06:22 1 gm ONCE ONE Administration Medical Decision Making Differential Diagnosis Differential Diagnoses: The differential diagnosis associated with the presentation includes (Gastritis, cholecystitis, pancreatitis, colitis, diverticulitis, acute appendicitis, kidney stone, pyelonephritis, , electrolyte derangement, severe anemia.) Admission/Observation Consideration of admission/observation: Escalation of care including admission/observation considered Consult Healthcare Provider Management of the patient was discussed with: Health Care Facility Administrator (Dr. Adame) Lab Data MDM Lab Attestation statement: I reviewed the patient's lab results. 01/11/25 05:50 01/11/25 05:50 Labs: Lab Results 01/11/25 01/11/25 01/11/25 Range/Units 05:50 06:33 07:06 WBC 6.6 (4.8-10.8) X10*3/uL RBC 4.05 L (4.20-5.50) X10*6/uL Hgb 12.4 (12.0-16.0) g/dl Hct 38.8 (37.0-47.0) % MCV 95.8 (80.0-98.0) fL MCH 30.6 (27.0-33.0) pg MCHC 32.0 (31.0-35.0) g/dl RDW 11.9 (11.0-16.0) % Plt Count 229 (160-400) X10*3/uL MPV 12.0 (9.4-12.3) fL Immature Gran % (Auto) 0.3 (0.0-0.4) % Neut % (Auto) 58.5 (45-73) % Lymph % (Auto) 27.4 (20-40) % [place] % (Auto) 9.4 (2-11) % Eos % (Auto) 3.6 (0-4) % Baso % (Auto) 0.8 (0-2) % Lymph # (Auto) 1.8 (1.2-4.9) X10*3/uL [place] # (Auto) 0.6 (0.1-1.2) X10*3/uL Eos # (Auto) 0.2 (0.0-0.4) X10*3/uL Baso # (Auto) 0.1 (0.0-0.2) X10*3/uL Abs Immat Gran (auto) 0.02 (0.00-0.03) X10*3/uL Absolute Neuts (auto) 3.9 (2.0-8.3) x10*3/uL Absolute Nucleated RBC 0.000 (0.0-0.012) X10*3/uL Nucleated RBC % (auto) 0.0 (0.0-0.2) /100WBC D-Dimer High Sensitivty NG/ML Sodium 136 (135-145) mmol/L Potassium 4.2 (3.3-5.1) mmol/L Chloride 110 H (96-108) mmol/L Carbon Dioxide 20 L (22-29) mmol/L Anion Gap 10 L (12-20) BUN 17 H (9-16) mg/dL Creatinine 0.71 (0.5-1.4) mg/dL Estim Creat Clear Calc 101.3 Estimated GFR > 60 POC Glucose 107 (60-115) mg/dL Random Glucose 104 (60-115) mg/dL Calcium 8.6 D (8.4-10.2) mg/dL Magnesium 1.9 (1.6-2.6) mg/dL Total Bilirubin 0.3 (0.0-1.0) mg/dL AST 19 (5-31) U/L ALT 26 (0-31) U/L Alkaline Phosphatase 71 (39-117) U/L Troponin I High Sens < 2.7 (<3.5-17.0) ng/L Total Protein 7.2 (6.5-8.0) g/dL Albumin 4.1 (3.5-5.0) g/dL Lipase 34 (8-78) U/L Beta HCG, Quant < 2 mIU/mL Urine Color Urine Appearance Urine pH (5.0-9.0) Ur Specific [place] (1.005-1.025) Urine Protein (Neg-Trace) mg/dL Urine Glucose (UA) (Negative) mg/dL Urine Ketones (Negative) mg/dL Urine Blood (Negative) Urine Nitrite (Negative) Ur Leukocyte Esterase (Negative) Urine RBC (0-2) /HPF Urine WBC (0-5) /HPF Ur Squamous Epith Cells (0-2) /HPF Urine Bacteria (None Seen) Hyaline Casts (0-2) /LPF Stool Occult Blood NEGATIVE (NEGATIVE) COVID-19 (JENNIE) Negative (Negative) COVID-19 Clin Com See Note Influenza Type A (ELIAZAR) Negative (Negative) Influenza Type B (ELIAZAR) Negative (Negative) Influenza A & B Note See Note 01/11/25 01/11/25 Range/Units 07:22 08:19 WBC (4.8-10.8) X10*3/uL RBC (4.20-5.50) X10*6/uL Hgb (12.0-16.0) g/dl Hct (37.0-47.0) % MCV (80.0-98.0) fL MCH (27.0-33.0) pg MCHC (31.0-35.0) g/dl RDW (11.0-16.0) % Plt Count (160-400) X10*3/uL MPV (9.4-12.3) fL Immature Gran % (Auto) (0.0-0.4) % Neut % (Auto) (45-73) % Lymph % (Auto) (20-40) % [place] % (Auto) (2-11) % Eos % (Auto) (0-4) % Baso % (Auto) (0-2) % Lymph # (Auto) (1.2-4.9) X10*3/uL [place] # (Auto) (0.1-1.2) X10*3/uL Eos # (Auto) (0.0-0.4) X10*3/uL Baso # (Auto) (0.0-0.2) X10*3/uL Abs Immat Gran (auto) (0.00-0.03) X10*3/uL Absolute Neuts (auto) (2.0-8.3) x10*3/uL Absolute Nucleated RBC (0.0-0.012) X10*3/uL Nucleated RBC % (auto) (0.0-0.2) /100WBC D-Dimer High Sensitivty 189 NG/ML Sodium (135-145) mmol/L Potassium (3.3-5.1) mmol/L Chloride (96-108) mmol/L Carbon Dioxide (22-29) mmol/L Anion Gap (12-20) BUN (9-16) mg/dL Creatinine (0.5-1.4) mg/dL Estim Creat Clear Calc Estimated GFR POC Glucose (60-115) mg/dL Random Glucose (60-115) mg/dL Calcium (8.4-10.2) mg/dL Magnesium (1.6-2.6) mg/dL Total Bilirubin (0.0-1.0) mg/dL AST (5-31) U/L ALT (0-31) U/L Alkaline Phosphatase (39-117) U/L Troponin I High Sens (<3.5-17.0) ng/L Total Protein (6.5-8.0) g/dL Albumin (3.5-5.0) g/dL Lipase (8-78) U/L Beta HCG, Quant mIU/mL Urine Color Yellow Urine Appearance Clear Urine pH 6.5 (5.0-9.0) Ur Specific [place] 1.010 (1.005-1.025) Urine Protein Negative (Neg-Trace) mg/dL Urine Glucose (UA) Negative (Negative) mg/dL Urine Ketones Negative (Negative) mg/dL Urine Blood Negative (Negative) Urine Nitrite Negative (Negative) Ur Leukocyte Esterase Negative (Negative) Urine RBC 0-2 (0-2) /HPF Urine WBC 0-5 (0-5) /HPF Ur Squamous Epith Cells 0-2 (0-2) /HPF Urine Bacteria None Seen (None Seen) Hyaline Casts 0-2 (0-2) /LPF Stool Occult Blood (NEGATIVE) COVID-19 (JENNIE) (Negative) COVID-19 Clin Com Influenza Type A (ELIAZAR) (Negative) Influenza Type B (ELIAZAR) (Negative) Influenza A & B Note Independent Interpretation I performed an independent interpretation of an: Ultrasound (Abdominal:Concerning acalculous cholecystitis versus hepatitis versus prolonged fasting. 1.6 cm cyst, right kidney.) Radiology Impression Discussion of test interpretation with radiology: I have reviewed the radiologist's reading. Discharge Plan Discharge Patient Disposition: Admitted As Inpatient Print Language: Cook Islander
[2025-01-11 06:27] LABS: Alanine Aminotransferase 26 U/L (0-31); Albumin Level 4.1 g/dL (3.5-5.0); Alkaline Phosphatase 71 U/L (39-117); Anion Gap 10 (12-20); Aspartate Amino Transferase 19 U/L (5-31); Blood Urea Nitrogen 17 mg/dL (9-16); Calcium 8.6 mg/dL (8.4-10.2); Carbon Dioxide 20 mmol/L (22-29); Chloride 110 mmol/L (96-108); Creatinine Clr Calc Pharmacy 101.3; Estimated Glomerular Filt Rate > 60; Lipase 34 U/L (8-78); Magnesium 1.9 mg/dL (1.6-2.6); Potassium 4.2 mmol/L (3.3-5.1); Sodium 136 mmol/L (135-145); Total Protein 7.2 g/dL (6.5-8.0)
[2025-01-11 06:29] LABS: Troponin-I High Sensitivity < 2.7 ng/L (<3.5-17.0)
[2025-01-11] MEDS: Sucralfate Oral Suspension 1 GM/10 ML ORAL.SUSP PO (06:44)
[2025-01-11] MEDS: Magnesium Hydrox/Alum Hydrox 30 ML ORAL.SUSP PO (06:44)
[2025-01-11 06:55] LABS: OBS Int Ctl Valid YES; OBS1 NEGATIVE (NEGATIVE)
[2025-01-11 07:09] LABS: Glucose, Whole Blood 107 mg/dL (60-115)
[2025-01-11 07:40] LABS: D Dimer High Sensitivity 189 NG/ML
[2025-01-11 08:26] LABS: Appearance Urine Clear; Glucose Urine UA Negative (Negative); PH 6.5 (5.0-9.0); Specific Gravity - Urine 1.010 (1.005-1.025)
--- NOTE | 2025-01-11 12:40 | PM.CNGS ---
History of Present Illness Consult details Consult date: 01/11/25 Requesting physician: Lindsey Billings Narrative: 39-year-old female patient presenting today to the emergency department with complaints of chest, epigastric, back, and left shoulder pain. 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 She denies nausea, vomiting, diarrhea, constipation, anorexia or bloody stool. She does admit to drinking several times weekly. In the ER she was noted to be tender in the upper abdomen. Laboratories revealed a normal WBC and LFTs. Ultrasound report notes the gallbladder to be fluid filled with trace pericholecystic fluid and no sonographic Mayes sign. Impression was ?concerning acalculous cholecystitis versus hepatitis versus prolonged fasting.? Review of the ultrasound however does reveal gallstones within the gallbladder at the neck. She is scheduled for a HIDA scan later today. Review of Systems Review of Systems: Yes all other systems are reviewed and are negative PMFSH Social History Social History Alcohol intake: current Alcohol intake frequency: holidays/special occasions only Smoked in Last 30 Days: No Use of substances other than those prescribed or required for medical reasons: No Advance Directives: No Advance Directives Information Provided: Yes Do you have a plan to hurt others: No Plan Meds Allergies Allergy/AdvReac Type Severity Reaction Status Date / Time No Known Allergies Allergy Verified 01/11/25 05:30 Home Medications ?Medication ?Instructions ?Recorded ?Confirmed ?Last Taken ?Type dolutegravir 50 mg tablet (Tivicay) 50 mg PO DAILY 11/24/22 11/24/22 Unknown History emtricitabine 200 mg-tenofovir 1 tab PO DAILY 11/24/22 11/24/22 Unknown History disoproxil fumarate 300 mg tablet budesonide 32 mcg/actuation nasal 32 mcg intranasal DAILY 01/11/25 Unknown History spray budesonide-formoterol HFA 80 2 inh inhalation DAILY 01/11/25 Unknown History mcg-4.5 mcg/actuation aerosol inhaler (Symbicort) escitalopram oxalate 10 mg tablet 10 mg PO DAILY 01/11/25 Unknown History Physical Exam Vital Signs: Vital Signs: Last Vital Signs Temp 97.8 F 01/11/25 10:48 Pulse 68 01/11/25 10:48 Resp 18 01/11/25 10:48 BP 102/59 L 01/11/25 10:48 Pulse Ox 100 01/11/25 10:48 O2 Del Method Room Air 01/11/25 10:48 BMI result Body Mass Index 30.5 Const: General: cooperative and no acute distress Nutritional Appearance: well nourished Orientation/consciousness: patient oriented x3 Limitations: no limitations HEENT: Head: Yes normocephalic and Yes atraumatic Ears: hearing grossly normal bilaterally Resp: Effort & Inspection: normal respiratory effort, no audible wheezes, no cough and no respiratory distress Cardio: Jugular venous distension: no JVD GI: Inspection: Yes normal to inspection Palpation (GI): Soft to palpation, not firm, Tenderness to palpation present (GI) in the epigastrum, in the LUQ and in the RUQ; Mayes's sign negative and with no rebound tenderness, no guarding and not rigid Percussion: Yes normal to percussion Auscultation: normal bowel sounds Rectal Exam - Female: deferred Skin: Other: Warm, dry, no rash Neuro: General: patient oriented x3 Extrem: General: Yes normal to inspection and Yes no clubbing, cyanosis or edema Results Labs 01/11/25 05:50 01/11/25 05:50 Labs: Abnormal lab results 01/11/25 Range/Units 05:50 RBC 4.05 L (4.20-5.50) X10*6/uL Chloride 110 H (96-108) mmol/L Carbon Dioxide 20 L (22-29) mmol/L Anion Gap 10 L (12-20) BUN 17 H (9-16) mg/dL Short CBC 01/11/25 Range/Units 05:50 WBC 6.6 (4.8-10.8) X10*3/uL Hgb 12.4 (12.0-16.0) g/dl Hct 38.8 (37.0-47.0) % Plt Count 229 (160-400) X10*3/uL BMP 01/11/25 05:50 Sodium 136 Potassium 4.2 Chloride 110 H Carbon Dioxide 20 L BUN 17 H Creatinine 0.71 Calcium 8.6 D Liver Function 01/11/25 Range/Units 05:50 Total Bilirubin 0.3 (0.0-1.0) mg/dL AST 19 (5-31) U/L ALT 26 (0-31) U/L Alkaline Phosphatase 71 (39-117) U/L Albumin 4.1 (3.5-5.0) g/dL Urine 01/11/25 Range/Units 08:19 Urine Color Yellow Urine Appearance Clear Urine pH 6.5 (5.0-9.0) Ur Specific [place] 1.010 (1.005-1.025) Urine Protein Negative (Neg-Trace) mg/dL Urine Glucose (UA) Negative (Negative) mg/dL All other labs normal. Assessment and Plan (1) Acute cholecystitis due to biliary calculus: Status: Acute Plan 39-year-old female patient presenting with complaints of chest, abdominal, back and shoulder pain found to be tender in the epigastric and right upper quadrant with a negative Mayes sign. Laboratories revealed normal WBC and LFTs. Ultrasound is suggestive of possible acalculous cholecystitis although gallstones are noted in the gallbladder. We will await results of the HIDA scan. If positive we will admit for further management of acute cholecystitis. HIDA revealed reduced EF suggestive of biliary dyskinesia. Patient still having abdominal pain, therefore will admit for pain control, possible lap/open cholecystectomy. Procedures Date of Service Date of Service: 01/11/25
[2025-01-11] MEDS: Dextrose 5 % and Lactated Ring 1,000 ML 125 ML IVCONT (18:43)
--- NOTE | 2025-01-11 19:11 | PHA.MEDREC ---
Addendum entered by Erlin Culver, PharmD 01/11/25 19:42: MED REC CHECKED BY [facility] Original Note: Pharmacy Consult ? Medication Reconciliation Pharmacy has completed the medication reconciliation. Spoke with pt, utilizing edge brusher and she confirmed her medications with us. Pt confirmed she takes her Budesonide nasal spray once daily and her Symbicort inhaler once daily.
--- NOTE | 2025-01-11 20:26 | HO.NURTONUR ---
39-year-old female, full code, NKA, NPO, A+Ox3, kazakh speaking, patient presenting today to the emergency department with complaints of chest, epigastric, back, and left shoulder pain. 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 She denies nausea, vomiting, diarrhea, constipation, anorexia or bloody stool. She does admit to drinking several times weekly. In the ER she was noted to be tender in the upper abdomen. Laboratories revealed a normal WBC and LFTs. Ultrasound report notes the gallbladder to be fluid filled with trace pericholecystic fluid and no sonographic Mayes sign. Impression was ?concerning acalculous cholecystitis versus hepatitis versus prolonged fasting.? Review of the ultrasound however does reveal gallstones within the gallbladder at the neck. She is scheduled for a HIDA scan later today. Plan HIDA revealed reduced EF suggestive of biliary dyskinesia. Patient still having abdominal pain, therefore will admit for pain control, possible lap/open cholecystectomy. Abdominal US : IMPRESSION: Concerning acalculous cholecystitis versus hepatitis versus prolonged fasting. 1.6 cm cyst, right kidney. She has D5LR running at 125ml/hr
[2025-01-11] MEDS: oxyCODONE HCl Immed Release 5 MG TABLET PO (21:44)
[2025-01-12] VITALS (10 sets, daily range): BP systolic 94–111; BP diastolic 53–69; PULSE 65–83; RESP 12–18; TEMP 36.1–37; O2SAT 94–100
[2025-01-12] MEDS: Dextrose 5 % and Lactated Ring 1,000 ML 125 ML IVCONT ×4 (02:27→23:28)
[2025-01-12 05:47] LABS: MANUAL DIFF FLAG NO
[2025-01-12 05:52] LABS: Hematocrit 37.2 % (37.0-47.0); Hemoglobin 12.0 g/dl (12.0-16.0); Imm Gran Abs Auto 0.01 X10*3/uL (0.00-0.03); Imm Gran Pct Auto 0.3 % (0.0-0.4); Lymphocytes Absolute Auto 1.7 X10*3/uL (1.2-4.9); Mean Corpuscular HGB Conc 32.3 g/dl (31.0-35.0); Mean Corpuscular Hemoglobin 31.0 pg (27.0-33.0); Mean Corpuscular Volume 96.1 fL (80.0-98.0); NRBC Abs Auto 0.000 X10*3/uL (0.0-0.012); NRBC Pct Auto 0.0 /100WBC (0.0-0.2); Platelet Count 227 X10*3/uL (160-400); Red Blood Count 3.87 X10*6/uL (4.20-5.50); White Blood Count 3.9 X10*3/uL (4.8-10.8)
[2025-01-12 06:13] LABS: Alanine Aminotransferase 19 U/L (0-31); Albumin Level 3.7 g/dL (3.5-5.0); Alkaline Phosphatase 64 U/L (39-117); Anion Gap 11 (12-20); Aspartate Amino Transferase 20 U/L (5-31); Blood Urea Nitrogen 14 mg/dL (9-16); Calcium 8.5 mg/dL (8.4-10.2); Carbon Dioxide 23 mmol/L (22-29); Chloride 109 mmol/L (96-108); Creatinine Clr Calc Pharmacy 88.0; Estimated Glomerular Filt Rate > 60; Potassium 4.3 mmol/L (3.3-5.1); Sodium 139 mmol/L (135-145); Total Protein 6.6 g/dL (6.5-8.0)
[2025-01-12] MEDS: oxyCODONE HCl Immed Release 5 MG TABLET PO (09:41)
--- NOTE | 2025-01-12 10:12 | P.PNGS_ITS ---
Subjective Subjective Date of Service: 01/12/25 Interval history: Has continued RUQ pain this morning, somewhat relieved with analgesics. Some nausea as well. Would like to proceed with surgery today. Physical Exam 2 Vital Signs: Vital Signs: Last Vital Signs Temp 96.9 F 01/12/25 07:10 Pulse 72 01/12/25 07:10 Resp 15 01/12/25 07:10 BP 98/54 L 01/12/25 07:10 Pulse Ox 100 01/12/25 07:10 O2 Del Method Room Air 01/12/25 07:10 BMI result Body Mass Index 31.4 Const: General: comfortable, no acute distress and alert O rientation/consciousness: patient oriented x3 Resp: Effort & Inspection: normal respiratory effort GI: Other: corpulent abdomen RUQ tender to palpation Percussion: Yes normal to percussion Skin: General skin exam: no rashes or lesions noted and no jaundice Neuro: General: patient oriented x3 and moves all extremities Objective Data Active Medications Calcium Carbonate (Calcium Carbonate 750 Mg Tab.Chew) 750 mg PO Q4H PRN PRN Reason: Heartburn Hydromorphone HCl (Hydromorphone Hcl 0.5 Mg/0.5 Ml Syringe) 0.5 mg IVPUSH Q3H PRN; Protocol PRN Reason: Pain, Severe (Pain Scale 7-10) Acetaminophen (Ofirmev) 1,000 mg in 100 mls @ 400 mls/hr IV Q6H PRN PRN Reason: Pain, Mild (Pain Scale 1-3) Last Infusion: 01/12/25 09:53 Dose: Infused Documented By: MAURICIO Dextrose/Lactated Ringer's (D5lr) 1,000 mls @ 125 mls/hr IVCONT .Q8H [facility] Last Admin: 01/12/25 02:27 Dose: 125 mls/hr Documented By: JOSSY Piperacillin Sod/Tazobactam (Sod 3.375 gm/ Sodium Chloride) 50 mls @ 100 mls/hr IV Q6H [facility] Last Infusion: 01/12/25 06:04 Dose: Infused Documented By: JOSSY Magnesium Hydroxide (Milk Of Magnesia 30 Ml Oral.Susp) 30 ml PO DAILY PRN PRN Reason: Constipation Melatonin (Melatonin 3 Mg Tablet) 6 mg PO BEDTIME PRN PRN Reason: Insomnia Ondansetron HCl (Ondansetron Hcl 4 Mg/2 Ml Vial) 4 mg IVPUSH QID PRN PRN Reason: Nausea Last Admin: 01/12/25 08:56 Dose: 4 mg Documented By: MAURICIO Oxycodone HCl (Oxycodone Hcl Immed Release 5 Mg Tablet) 5 mg PO Q6H PRN PRN Reason: Pain, Moderate(Pain Scale 4-6) Last Admin: 01/12/25 09:41 Dose: 5 mg Documented By: ROMEL Sodium Chloride (0.9 % Sodium Chloride Flush 3 Ml Syringe) 3 ml IVFLUSH QSHIFT HUSSAIN Last Admin: 01/12/25 08:53 Dose: Not Given Documented By: MAURICIO Non-Admin Reason: IV Running Labs 01/12/25 05:29 01/12/25 05:29 Labs: Laboratory Results - last 24 hr 01/12/25 05:29 MCV 96.1 MCH 31.0 MCHC 32.3 RDW 11.9 Plt Count 227 MPV 12.3 Immature Gran % (Auto) 0.3 Neut % (Auto) 38.0 L Lymph % (Auto) 44.4 H Barren % (Auto) 11.2 H Eos % (Auto) 5.1 H Baso % (Auto) 1.0 Lymph # (Auto) 1.7 Barren # (Auto) 0.4 Eos # (Auto) 0.2 Baso # (Auto) 0.0 Abs Immat Gran (auto) 0.01 Absolute Neuts (auto) 1.5 L Absolute Nucleated RBC 0.000 Nucleated RBC % (auto) 0.0 Anion Gap 11 L Estim Creat Clear Calc 88.0 Estimated GFR > 60 Random Glucose 111 Calcium 8.5 Total Bilirubin 0.5 Direct Bilirubin 0.1 AST 20 ALT 19 Alkaline Phosphatase 64 Total Protein 6.6 Albumin 3.7 Procedures Date of Service Date of Service: 01/12/25 Progress Note: A&P Assessment and plan (1) Dysfunctional gallbladder: Status: Acute Plan HIDA showed biliary dyskinesia yesterday. Has persistent RUQ pain and nausea this morning. VSS. Abd exam with RUQ tenderness. Cont NPO, IVF. Risks, benefits, alternatives of laparoscopic possible open cholecystectomy were reviewed with the patient including but not limited to bleeding, infection, numbness, pain, poor healing, injury to the liver, bowel or bile ducts, leak, retained stones and the patient wishes to proceed.? She has been added onto the OR schedule for today.?All questions were answered. Time Spent With Patient Time: Total time managing care of this patient today ____ minutes. Quality Stroke Does the patient have a stroke diagnosis?: No VTE Prior VTE?: No VTE Risk Level:: Surgical - moderate VTE Device Contraindication: N/A - Device Ordered VTE Drug Contraindication: Treatment Not Indicated
--- NOTE | 2025-01-12 11:44 | HO.ANESPROP2 ---
Documented by User: Jesusita Farfan NP 01/12/25 11:45 HPI - Anesthesia Eval Consult details Narrative: 39 yr old female for lap cholecystectomy HIV: on Truvada, Tivicay PMFSH Active Problems Active Problems: All Active Problems (Updated 01/11/25 @ 17:32 by Lester Greco MD) Dysfunctional gallbladder (Acute) Gallstone (Acute) Abdominal pain (Acute) Acute cholecystitis due to biliary calculus (Acute) Social History Social History Household Members: None Housing: Apartment Do you presently have visiting nurse or other home services: No Alcohol intake: current Alcohol intake frequency: holidays/special occasions only Patient Tobacco Use Status: Never used Tobacco Smoked in Last 30 Days: No Use of substances other than those prescribed or required for medical reasons: No Currently Displaying Signs/Symptoms of Drug Intoxication Withdrawal: No Have you been hit, kicked, punched, or otherwise hurt by someone within the past year? If so, by whom?: No Do you feel safe in your current relationship?: No Current Relationship Is there a partner from a previous relationship who is making you feel unsafe now?: No Are you made to feel afraid or neglected: No Advance Directives: No Advance Directives Information Provided: Yes Do you have a plan to hurt others: No Plan Recently lost weight without trying: No How much weight loss: Not applicable Eating poorly because of decreased appetite: No Nutrition screen score: 0 Nutrition Risks: No Nutritional Risk Patient : No : No Poor oral hygiene: No service: No Meds Allergies Allergy/AdvReac Type Severity Reaction Status Date / Time No Known Allergies Allergy Verified 01/11/25 05:30 Active Medications: Current Medications Calcium Carbonate (Calcium Carbonate 750 Mg Tab.Chew) 750 mg PO Q4H PRN PRN Reason: Heartburn Hydromorphone HCl (Hydromorphone Hcl 0.5 Mg/0.5 Ml Syringe) 0.5 mg IVPUSH Q3H PRN; Protocol PRN Reason: Pain, Severe (Pain Scale 7-10) Acetaminophen (Ofirmev) 1,000 mg in 100 mls @ 400 mls/hr IV Q6H PRN PRN Reason: Pain, Mild (Pain Scale 1-3) Last Infusion: 01/12/25 09:53 Dose: Infused Dextrose/Lactated Ringer's (D5lr) 1,000 mls @ 125 mls/hr IVCONT .Q8H [facility] Last Admin: 01/12/25 10:51 Dose: 125 mls/hr Piperacillin Sod/Tazobactam (Sod 3.375 gm/ Sodium Chloride) 50 mls @ 100 mls/hr IV Q6H [facility] Last Infusion: 01/12/25 06:04 Dose: Infused Magnesium Hydroxide (Milk Of Magnesia 30 Ml Oral.Susp) 30 ml PO DAILY PRN PRN Reason: Constipation Melatonin (Melatonin 3 Mg Tablet) 6 mg PO BEDTIME PRN PRN Reason: Insomnia Ondansetron HCl (Ondansetron Hcl 4 Mg/2 Ml Vial) 4 mg IVPUSH QID PRN PRN Reason: Nausea Last Admin: 01/12/25 08:56 Dose: 4 mg Oxycodone HCl (Oxycodone Hcl Immed Release 5 Mg Tablet) 5 mg PO Q6H PRN PRN Reason: Pain, Moderate(Pain Scale 4-6) Last Admin: 01/12/25 09:41 Dose: 5 mg Sodium Chloride (0.9 % Sodium Chloride Flush 3 Ml Syringe) [facility] Last Admin: 01/12/25 08:53 Dose: Not Given Home Medications ?Medication ?Instructions ?Recorded ?Confirmed ?Last Taken ?Type dolutegravir 50 mg tablet (Tivicay) 50 mg PO DAILY 11/24/22 01/11/25 01/09/25 History emtricitabine 200 mg-tenofovir 1 tab PO DAILY 11/24/22 01/11/25 01/09/25 History disoproxil fumarate 300 mg tablet (Truvada) budesonide 32 mcg/actuation nasal 32 mcg intranasal DAILY 01/11/25 01/11/25 01/09/25 History spray budesonide-formoterol HFA 80 2 inh inhalation DAILY 01/11/25 01/11/25 01/09/25 History mcg-4.5 mcg/actuation aerosol inhaler (Symbicort) escitalopram oxalate 10 mg tablet 10 mg PO DAILY 01/11/25 01/11/25 01/09/25 History multivitamin 1 tab PO DAILY 01/11/25 01/11/25 01/09/25 History Exam Height,Weight and Vital Signs: Height 5 ft 2 in Weight 78 kg Last Vital Signs Temp 96.9 F 01/12/25 07:10 Pulse 72 01/12/25 07:10 Resp 15 01/12/25 07:10 BP 98/54 L 01/12/25 07:10 Pulse Ox 100 01/12/25 07:10 O2 Del Method Room Air 01/12/25 07:10 Pertinent Lab Results Pertinent Lab Results: Laboratory Tests 01/11/25 01/11/25 01/11/25 05:50 06:33 07:06 WBC 6.6 RBC 4.05 L Hgb 12.4 Hct 38.8 MCV 95.8 MCH 30.6 MCHC 32.0 RDW 11.9 Plt Count 229 MPV 12.0 Immature Gran % (Auto) 0.3 Neut % (Auto) 58.5 Lymph % (Auto) 27.4 [place] % (Auto) 9.4 Eos % (Auto) 3.6 Baso % (Auto) 0.8 Lymph # (Auto) 1.8 [place] # (Auto) 0.6 Eos # (Auto) 0.2 Baso # (Auto) 0.1 Abs Immat Gran (auto) 0.02 Absolute Neuts (auto) 3.9 Absolute Nucleated RBC 0.000 Nucleated RBC % (auto) 0.0 D-Dimer High Sensitivty Sodium 136 Potassium 4.2 Chloride 110 H Carbon Dioxide 20 L Anion Gap 10 L BUN 17 H Creatinine 0.71 Estim Creat Clear Calc 101.3 Estimated GFR > 60 POC Glucose 107 Random Glucose 104 Calcium 8.6 D Magnesium 1.9 Total Bilirubin 0.3 Direct Bilirubin AST 19 ALT 26 Alkaline Phosphatase 71 Troponin I High Sens < 2.7 Total Protein 7.2 Albumin 4.1 Lipase 34 Beta HCG, Quant < 2 Urine Color Urine Appearance Urine pH Ur Specific [place] Urine Protein Urine Glucose (UA) Urine Ketones Urine Blood Urine Nitrite Ur Leukocyte Esterase Urine RBC Urine WBC Ur Squamous Epith Cells Urine Bacteria Hyaline Casts Stool Occult Blood NEGATIVE COVID-19 (JENNIE) Negative COVID-19 Clin Com See Note Influenza Type A (ELIAZAR) Negative Influenza Type B (ELIAZAR) Negative Influenza A & B Note See Note 01/11/25 01/11/25 01/12/25 07:22 08:19 05:29 WBC 3.9 L RBC 3.87 L Hgb 12.0 Hct 37.2 MCV 96.1 MCH 31.0 MCHC 32.3 RDW 11.9 Plt Count 227 MPV 12.3 Immature Gran % (Auto) 0.3 Neut % (Auto) 38.0 L Lymph % (Auto) 44.4 H [place] % (Auto) 11.2 H Eos % (Auto) 5.1 H Baso % (Auto) 1.0 Lymph # (Auto) 1.7 [place] # (Auto) 0.4 Eos # (Auto) 0.2 Baso # (Auto) 0.0 Abs Immat Gran (auto) 0.01 Absolute Neuts (auto) 1.5 L Absolute Nucleated RBC 0.000 Nucleated RBC % (auto) 0.0 D-Dimer High Sensitivty 189 Sodium 139 Potassium 4.3 Chloride 109 H Carbon Dioxide 23 Anion Gap 11 L BUN 14 Creatinine 0.83 Estim Creat Clear Calc 88.0 Estimated GFR > 60 POC Glucose Random Glucose 111 Calcium 8.5 Magnesium Total Bilirubin 0.5 Direct Bilirubin 0.1 AST 20 ALT 19 Alkaline Phosphatase 64 Troponin I High Sens Total Protein 6.6 Albumin 3.7 Lipase Beta HCG, Quant Urine Color Yellow Urine Appearance Clear Urine pH 6.5 Ur Specific [place] 1.010 Urine Protein Negative Urine Glucose (UA) Negative Urine Ketones Negative Urine Blood Negative Urine Nitrite Negative Ur Leukocyte Esterase Negative Urine RBC 0-2 Urine WBC 0-5 Ur Squamous Epith Cells 0-2 Urine Bacteria None Seen Hyaline Casts 0-2 Stool Occult Blood COVID-19 (JENNIE) COVID-19 Clin Com Influenza Type A (ELIAZAR) Influenza Type B (ELIAZAR) Influenza A & B Note Documented by User: Roxann Kitchen MD 01/12/25 14:54 [facility] Family History Family history of problems with anesthesia: No Surgical History History of Problems with Anesthesia: No Social History Social History Household Members: None Housing: Apartment Do you presently have visiting nurse or other home services: No Alcohol intake: current Alcohol intake frequency: holidays/special occasions only Patient Tobacco Use Status: Never used Tobacco Smoked in Last 30 Days: No Use of substances other than those prescribed or required for medical reasons: No Currently Displaying Signs/Symptoms of Drug Intoxication Withdrawal: No Have you been hit, kicked, punched, or otherwise hurt by someone within the past year? If so, by whom?: No Do you feel safe in your current relationship?: No Current Relationship Is there a partner from a previous relationship who is making you feel unsafe now?: No Are you made to feel afraid or neglected: No Advance Directives: No Advance Directives Information Provided: Yes Do you have a plan to hurt others: No Plan Recently lost weight without trying: No How much weight loss: Not applicable Eating poorly because of decreased appetite: No Nutrition screen score: 0 Nutrition Risks: No Nutritional Risk Patient : No : No Poor oral hygiene: No service: No Meds Allergies Allergy/AdvReac Type Severity Reaction Status Date / Time No Known Allergies Allergy Verified 01/11/25 05:30 Home Medications ?Medication ?Instructions ?Recorded ?Confirmed ?Last Taken ?Type dolutegravir 50 mg tablet (Tivicay) 50 mg PO DAILY 11/24/22 01/11/25 01/09/25 History emtricitabine 200 mg-tenofovir 1 tab PO DAILY 11/24/22 01/11/25 01/09/25 History disoproxil fumarate 300 mg tablet (Truvada) budesonide 32 mcg/actuation nasal 32 mcg intranasal DAILY 01/11/25 01/11/25 01/09/25 History spray budesonide-formoterol HFA 80 2 inh inhalation DAILY 01/11/25 01/11/25 01/09/25 History mcg-4.5 mcg/actuation aerosol inhaler (Symbicort) escitalopram oxalate 10 mg tablet 10 mg PO DAILY 01/11/25 01/11/25 01/09/25 History multivitamin 1 tab PO DAILY 01/11/25 01/11/25 01/09/25 History Exam Airway Mallampati Class: II (growth on top of pharynx) TM Dist: >3cm Neck ROM: Full Heart: rrr Lungs: cta Assessment and Plan Assessment Anesthesia Assessment: Anesthesia Plan Discussed and Chart Reviewed Final Anesthetic Review Family History of Problems with Anesthesia: No History of Problems with Anesthesia: No NPO: Yes ASA Class: II Final Preanesthetic Review: No Changes in Pt Med Stat, Meds/Allgs Chart Reviewed and Consent Obtained/Reviewed Patient Risk: Low Procedure Risk: Low Anesthetic Plan Anesthetic Plan: GA Disposition: Standard PACU
--- NOTE | 2025-01-12 12:49 | MHC.CM.PN ---
pt lives with children works at [employer] is indeppendent will not need services when dcd may need a ride home when she is dcd c plan home n/s
--- NOTE | 2025-01-12 16:04 | W.PM.OPN ---
Operative Note Operative Note Date of Service: 01/12/25 Narrative: Preoperative diagnosis: Acute cholecystitis, cholelithiasis Postoperative diagnosis: Same Procedure: Laparoscopic cholecystectomy Surgeon: Bridger Adame MD Pediatric Licensed Practical Nurse: Lissette Arnett PA-C Anesthesia: General endotracheal Indications for procedure: 39-year-old female patient presenting with complaints of abdominal pain in the right upper quadrant and epigastrium radiating into the back found to have a distended gallbladder with fluid in the wall suggestive of acute cholecystitis Operative findings: Acutely inflamed gallbladder with wall thickening consistent with cholecystitis. Specimen: gallbladder Estimated blood loss: Less than 2 mL Complications: None Procedure details: Patient was brought to the OR and placed in a supine position. After administering general anesthesia the patient's abdomen was prepped with ChloraPrep and draped in a sterile fashion. A surgical time-out was called the consent confirmed. Patient received preoperative antibiotics and Venodyne boots were in place. Local anesthesia consisting of 0.5% Sensorcaine without epinephrine was infiltrated in a periumbilical region. A 5 mm incision was made above the umbilicus in a transverse fashion. The Veress needle was then inserted while elevating abdominal cavity with towel clips. After positive drop test the abdomen was insufflated to a pressure of 15 mm of mercury. The Veress needle was then removed and a 5 mm trocar inserted. The camera was inserted in the abdomen explored. A 12 mm trocar was then placed in the epigastrium. Two 5 mm trocars placed in the right upper quadrant by the miller head assistant wet process. The patient was placed in reverse Trendelenburg positioning and rotated to the left. The gallbladder was grasped with the fundus and retracted cephalad by the miller head assistant wet process. The infundibulum was then grasped and retracted away from the liver bed, also by the miller head assistant wet process. The Dolphin dissected was then used by the surgeon to dissect the peritoneum off the infundibulum to reveal the junction with the cystic duct. Cystic artery was noted slightly medial and posterior to the cystic duct. After obtaining a critical view the cystic duct was doubly clipped and divided. The cystic artery was then doubly clipped and divided. The gallbladder was then dissected off the liver bed using electrocautery with an L hook. Hemostasis was assured all times using the electrocautery. When the gallbladder is completely dissected off the liver bed was placed in an Endo-Catch bag and brought out through the epigastric incision. The gallbladder was sent to pathology for further examination. The abdomen was then re-examined. The liver bed was irrigated and suctioned dry. No bleeding or bile leak could be identified. CO2 was then evacuated and all trocars removed. Fascia was closed at the epigastric incision using a [id number] 0 Polysorb suture. Skin was closed in all incisions using a subcuticular 4 0 Polysorb suture by both the surgeon and miller head assistant wet process. Sterile dressings consisting of Steri-Strips, 2 x 2 gauze, and Tegaderm were then applied. The patient tolerated the procedure well. Sponge instrument and needle counts reported as correct. The patient was transferred to PACU in stable condition.
--- NOTE | 2025-01-12 19:23 | PC.NURSE ---
Family requesting assistance with FMLA paperwork. Pt will need a return to work note at discharge.
[2025-01-12] MEDS: 0.9 % Sodium Chloride Flush 3 ML SYRINGE IVFLUSH (22:59)
[2025-01-13 03:18] VITALS: BP 103/57; PULSE 85; RESP 18; TEMP 36.6; O2SAT 93
[2025-01-13 08:00] VITALS: BP 103/58; PULSE 77; RESP 16; TEMP 37; O2SAT 94
--- NOTE | 2025-01-13 08:19 | HO.POSTANES ---
Post Anesthesia Evaluation Post Anesthesia Evaluation Date of Service: 01/13/25 Vital Signs: Vital Signs Temp Pulse Resp BP Pulse Ox O2 Del Method 01/13/25 03:18 98 F 85 18 103/57 L 93 Room Air Anesthesia: General Endotracheal-GETA Mental Status: Awake Pain Control: Satisfactory Nausea/Vomiting: None Hydration: Adequate Anesthesia-Related Issues: No Anes. Related Issues
--- NOTE | 2025-01-13 08:25 | P.PNGS_ITS ---
Subjective Subjective Date of Service: 01/13/25 Interval history: Overall feels better, no further RUQ pain, now just with incisional pain and some right lateral/back pain. Controlled by analgesics. Tolerating solid diet, had some nausea last night. OOB and ambulating. Physical Exam 2 Vital Signs: Vital Signs: Last Vital Signs Temp 98 F 01/13/25 03:18 Pulse 85 01/13/25 03:18 Resp 18 01/13/25 03:18 BP 103/57 L 01/13/25 03:18 Pulse Ox 93 01/13/25 03:18 O2 Del Method Room Air 01/13/25 03:18 BMI result Body Mass Index 31.4 Const: General: comfortable, no acute distress and alert O rientation/consciousness: patient oriented x3 Resp: Effort & Inspection: normal respiratory effort GI: Other: dressings clean and intact mild incisional tenderness abd soft, nondistended Skin: General skin exam: no rashes or lesions noted and no jaundice Neuro: General: patient oriented x3 and moves all extremities Objective Data Active Medications Calcium Carbonate (Calcium Carbonate 750 Mg Tab.Chew) 750 mg PO Q4H PRN PRN Reason: Heartburn Hydromorphone HCl (Hydromorphone Hcl 0.5 Mg/0.5 Ml Syringe) 0.5 mg IVPUSH Q3H PRN; Protocol PRN Reason: Pain, Severe (Pain Scale 7-10) Last Admin: 01/13/25 03:45 Dose: 0.5 mg Documented By: DELTA Acetaminophen (Ofirmev) 1,000 mg in 100 mls @ 400 mls/hr IV Q6H PRN PRN Reason: Pain, Mild (Pain Scale 1-3) Last Infusion: 01/12/25 20:07 Dose: Infused Documented By: DELTA Magnesium Hydroxide (Milk Of Magnesia 30 Ml Oral.Susp) 30 ml PO DAILY PRN PRN Reason: Constipation Melatonin (Melatonin 3 Mg Tablet) 6 mg PO BEDTIME PRN PRN Reason: Insomnia Ondansetron HCl (Ondansetron Hcl 4 Mg/2 Ml Vial) 4 mg IVPUSH QID PRN PRN Reason: Nausea Last Admin: 01/12/25 08:56 Dose: 4 mg Documented By: MAURICIO Oxycodone HCl (Oxycodone Hcl Immed Release 5 Mg Tablet) 5 mg PO Q6H PRN PRN Reason: Pain, Moderate(Pain Scale 4-6) Last Admin: 01/12/25 09:41 Dose: 5 mg Documented By: ROMEL Sodium Chloride (0.9 % Sodium Chloride Flush 3 Ml Syringe) [facility] Last Admin: 01/13/25 07:28 Dose: Not Given Documented By: RAINA Non-Admin Reason: IV Running Labs 01/12/25 05:29 01/12/25 05:29 Procedures Date of Service Date of Service: 01/13/25 Progress Note: A&P Assessment and plan (1) Acute cholecystitis due to biliary calculus: Status: Acute (2) S/P laparoscopic cholecystectomy: Status: Acute Plan POD #1 s/p lap ulises. Doing well post op, had some nausea last night and using IV analgesics. Has some referred and incisional pain but clinically appearing well. VSS. Abd exam benign with appropriate post op tenderness. Encouraged oral analgesics today, will return later in the morning and if remains comfortable and tolerating breakfast, stable for dc to home. Patient comfortable with plan. All questions answered. Time Spent With Patient Time: Total time managing care of this patient today ____ minutes. Quality Stroke Does the patient have a stroke diagnosis?: No VTE Prior VTE?: No VTE Risk Level:: Surgical - moderate VTE Device Contraindication: N/A - Device Ordered VTE Drug Contraindication: Treatment Not Indicated
[2025-01-13 15:50] VITALS: BP 102/55; PULSE 68; RESP 18; TEMP 37.1; O2SAT 98
[2025-01-13 19:37] VITALS: BP 103/64; PULSE 76; RESP 18; TEMP 37.1; O2SAT 97
[2025-01-13] MEDS: oxyCODONE HCl Immed Release 5 MG TABLET 10 MG PO (21:15)
[2025-01-14 04:00] VITALS: BP 100/68; PULSE 63; RESP 16; TEMP 36.6; O2SAT 97
--- NOTE | 2025-01-14 06:20 | PM.EVENT ---
Event Note Date of Service: 01/14/25 Event Note: pt reported feeling unwell, headache and sore throat. BP soft. afebrile, vitals normal. added labs CBC, CMP, lactic, blood cultures x2 and give 1L LR. Time Spent With Patient Time: Total time managing care of this patient today ____ minutes.
[2025-01-14] MEDS: Lactated Ringers 1,000 ML 999 ML IV (06:43)
--- NOTE | 2025-01-14 06:44 | PC.NURSE ---
At around 0610 pt c/o headache, feeling cold, and having a sore throat. Vitals obtained: BP 94/67, temp 97.9, HR 61, O2 96. [place] Vasquez notified. New orders received to give bolus of LR. LR hung at a rate of 999mL/hr. Labs ordered. Patient given prn tylenol to help with headache.
[2025-01-14] MEDS: oxyCODONE HCl Immed Release 5 MG TABLET 10 MG PO ×3 (07:13→14:48)
[2025-01-14 07:29] LABS: MANUAL DIFF FLAG NO
[2025-01-14 07:32] LABS: Hematocrit 34.2 % (37.0-47.0); Hemoglobin 10.9 g/dl (12.0-16.0); Imm Gran Abs Auto 0.01 X10*3/uL (0.00-0.03); Imm Gran Pct Auto 0.2 % (0.0-0.4); Lymphocytes Absolute Auto 2.4 X10*3/uL (1.2-4.9); Mean Corpuscular HGB Conc 31.9 g/dl (31.0-35.0); Mean Corpuscular Hemoglobin 31.0 pg (27.0-33.0); Mean Corpuscular Volume 97.2 fL (80.0-98.0); NRBC Abs Auto 0.000 X10*3/uL (0.0-0.012); NRBC Pct Auto 0.0 /100WBC (0.0-0.2); Platelet Count 208 X10*3/uL (160-400); Red Blood Count 3.52 X10*6/uL (4.20-5.50); White Blood Count 5.6 X10*3/uL (4.8-10.8)
[2025-01-14 07:47] LABS: Alanine Aminotransferase 34 U/L (0-31); Albumin Level 3.7 g/dL (3.5-5.0); Alkaline Phosphatase 62 U/L (39-117); Anion Gap 10 (12-20); Aspartate Amino Transferase 37 U/L (5-31); Blood Urea Nitrogen 7 mg/dL (9-16); Calcium 8.5 mg/dL (8.4-10.2); Carbon Dioxide 24 mmol/L (22-29); Chloride 108 mmol/L (96-108); Creatinine Clr Calc Pharmacy 89.0; Estimated Glomerular Filt Rate > 60; Potassium 4.2 mmol/L (3.3-5.1); Sodium 138 mmol/L (135-145); Total Protein 6.6 g/dL (6.5-8.0)
[2025-01-14 08:00] VITALS: BP 91/58; PULSE 61; RESP 14; TEMP 37.1; O2SAT 99
--- NOTE | 2025-01-14 08:47 | PM.PNGS ---
Subjective Subjective Date of Service: 01/14/25 Interval history: Apparently complained of headache and dizziness upon standing early this morning. Vitals obtained and BP was on softer side. Assessed by hospitalists- given IVF bolus. CBC/BMP/LFTs/lactic acid obtained. She reports continued headache this morning but denies dizziness. Tolerating a solid diet without nausea, vomiting. Physical Exam Vital Signs: Vital Signs: Last Vital Signs Temp 98.7 F 01/14/25 08:00 Pulse 61 01/14/25 08:00 Resp 14 01/14/25 08:00 BP 91/58 L 01/14/25 08:00 Pulse Ox 99 01/14/25 08:00 O2 Del Method Room Air 01/14/25 08:00 BMI result Body Mass Index 31.4 Const: General: comfortable, no acute distress and alert Orientation/consciousness: patient oriented x3 Resp: Effort & Inspection: normal respiratory effort GI: Other: incisions clean mild incisional tenderness abd soft, nondistended Palpation (GI): no guarding Skin: General skin exam: no rashes or lesions noted Neuro: General: patient oriented x3 and moves all extremities Objective Data Active Medications Acetaminophen (Acetaminophen 325 Mg Tablet) 975 mg PO Q6H PRN PRN Reason: Pain, Mild 1-3,fever,headache Last Admin: 01/14/25 06:19 Dose: 975 mg Documented By: DELTA Calcium Carbonate (Calcium Carbonate 750 Mg Tab.Chew) 750 mg PO Q4H PRN PRN Reason: Heartburn Magnesium Hydroxide (Milk Of Magnesia 30 Ml Oral.Susp) 30 ml PO DAILY PRN PRN Reason: Constipation Melatonin (Melatonin 3 Mg Tablet) 6 mg PO BEDTIME PRN PRN Reason: Insomnia Ondansetron HCl (Ondansetron Hcl 4 Mg/2 Ml Vial) 4 mg IVPUSH QID PRN PRN Reason: Nausea Last Admin: 01/12/25 08:56 Dose: 4 mg Documented By: MAURICIO Oxycodone HCl (Oxycodone Hcl Immed Release 5 Mg Tablet) 5 mg PO Q6H PRN PRN Reason: Pain, Moderate(Pain Scale 4-6) Last Admin: 01/12/25 09:41 Dose: 5 mg Documented By: ROMEL Oxycodone HCl (Oxycodone Hcl Immed Release 5 Mg Tablet) 10 mg PO Q4H PRN PRN Reason: Pain, Severe (Pain Scale 7-10) Last Admin: 01/14/25 07:13 Dose: 10 mg Documented By: ROMEL Sodium Chloride (0.9 % Sodium Chloride Flush 3 Ml Syringe) 3 ml IVFLUSH QSHIFT [facility] Last Admin: 01/14/25 07:14 Dose: Not Given Documented By: ROMEL Non-Admin Reason: IV Running Labs 01/14/25 07:19 01/14/25 07:19 Labs: Laboratory Results - last 24 hr 01/14/25 07:19 MCV 97.2 MCH 31.0 MCHC 31.9 RDW 11.9 Plt Count 208 MPV 12.0 Immature Gran % (Auto) 0.2 Neut % (Auto) 44.3 L Lymph % (Auto) 43.1 H Evangeline % (Auto) 9.8 Eos % (Auto) 2.1 Baso % (Auto) 0.5 Lymph # (Auto) 2.4 Evangeline # (Auto) 0.6 Eos # (Auto) 0.1 Baso # (Auto) 0.0 Abs Immat Gran (auto) 0.01 Absolute Neuts (auto) 2.5 Absolute Nucleated RBC 0.000 Nucleated RBC % (auto) 0.0 Anion Gap 10 L Estim Creat Clear Calc 89.0 Estimated GFR > 60 Random Glucose 88 Lactic Acid 1.3 Calcium 8.5 Total Bilirubin 0.3 AST 37 H ALT 34 H Alkaline Phosphatase 62 Total Protein 6.6 Albumin 3.7 Procedures Date of Service Date of Service: 01/14/25 Progress Note: A&P Assessment and plan (1) S/P laparoscopic cholecystectomy: Status: Acute (2) Acute cholecystitis due to biliary calculus: Status: Acute Plan Had dizziness with soft BP this morning and given IVF bolus. She is clinically appearing well upon my assessment this morning, continues to have headache. Abd very benign, appropriate post op tenderness, incisions clean. Labs reviewed- unremarkable. BP has been on softer side during entire admission, no tachycardia. Likely where she lives at baseline. Dizziness may be secondary to narcotic use. Will however obtain orthostatic VS. Will reassess later today. If she feels improved and BP remains stable, possible dc to home. Time Spent With Patient Time: Total time managing care of this patient today ____ minutes. Quality Stroke Does the patient have a stroke diagnosis?: No VTE Prior VTE?: No VTE Risk Level:: Surgical - moderate VTE Device Contraindication: N/A - Device Ordered VTE Drug Contraindication: Treatment Not Indicated
[2025-01-14 08:51] VITALS: BP 103/58; PULSE 78
[2025-01-14 10:13] VITALS: BP 94/59; BP 95/61; PULSE 73; PULSE 82
--- NOTE | 2025-01-14 14:14 | MHC.CM.PN ---
pt dcd home self care
--- NOTE | 2025-01-14 15:22 | PM.DS ---
DS: Providers Provider Date of Service: 01/14/25 Date of admission: 01/11/25 17:59 Date of discharge: 01/14/25 Primary care physician: Mackenzie Armstrong MD Attending physician on admission: Bridger Adame Attending physician on discharge: Bridger Adame DS: Diagnosis Discharge Diagnosis (1) S/P laparoscopic cholecystectomy: Status: Acute (2) Acute cholecystitis due to biliary calculus: Status: Acute DS: Summary Hospital Course Hospital Course: HPI AT ADMISSION: 39-year-old female patient presenting today to the emergency department with complaints of chest, epigastric, back, and left shoulder pain. 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 She denies nausea, vomiting, diarrhea, constipation, anorexia or bloody stool. She does admit to drinking several times weekly. In the ER she was noted to be tender in the upper abdomen. Laboratories revealed a normal WBC and LFTs. Ultrasound report notes the gallbladder to be fluid filled with trace pericholecystic fluid and no sonographic Mayes sign. Impression was ?concerning acalculous cholecystitis versus hepatitis versus prolonged fasting.? Review of the ultrasound however does reveal gallstones within the gallbladder at the neck. HIDA scan was performed which showed reduced EF suggestive of biliary dyskinesia. Patient still having abdominal pain, therefore will admit for pain control, possible lap/open cholecystectomy. HOSPITAL COURSE: The patient was admitted to the surgical service for further treatment of the biliary dyskinesia. Treatment options were discussed with the patient at the time of admission however she was unsure and therefore nonoperative measures were continued. The following day she had continued pain and elected to proceed with laparoscopic cholecystectomy, possible open. She was added onto the OR schedule for that day. On 01/12/25, a laparoscopic cholecystectomy was performed by Dr. Adame without complication. The patient tolerated the procedure well. She had an uncomplicated recovery course but stayed two nights for pain control. On the day of discharge, she felt well and was tolerating a solid diet without nausea or vomiting, had good pain control and was ambulating without difficulty. She was hemodynamically stable. Her abdomen was benign with appropriate post op tenderness and clean and intact dressings. She felt ready for discharge. She was discharged to home on 01/14/25 in stable condition. She is to follow up in the office in 1 week. Status at Discharge Functional status at discharge: independent ambulation Overall status at discharge: patient is progressing back to baseline Time Attestation Discharge Coordination Time (in mins): 30 Quality: Safe Use of Opioids Does Pt have an Active Cancer Diagnosis on the Problem List?: No Quality: Stroke Does the patient have a stroke diagnosis?: No Physical Exam Vital Signs: Vital Signs: Last Vital Signs Temp 98.7 F 01/14/25 08:00 Pulse 82 01/14/25 10:13 Resp 14 01/14/25 08:00 BP 94/59 L 01/14/25 10:13 Pulse Ox 99 01/14/25 08:00 O2 Del Method Room Air 01/14/25 08:00 BMI result Body Mass Index 31.4 Const: General: comfortable, no acute distress and alert Orientation/consciousness: patient oriented x3 Resp: Effort & Inspection: normal respiratory effort GI: Inspection: No distended and Yes incision (clean) Palpation (GI): Soft to palpation, Tenderness to palpation present (GI) (mild incisional) and no guarding Skin: General skin exam: no rashes or lesions noted Neuro: General: patient oriented x3 and moves all extremities DS: Data Data Completed and Pending Completed studies during hospitalization [Text1]: 01/12/25 15:34 Surgical [PTH] Routine Gallbladder, cholecystectomy: Subacute on chronic cholecystitis with focal cholesterolosis and cholelithiasis Labs on day of discharge: Preliminary micro results at discharge 01/14/25 07:19 Blood Culture - Preliminary Blood - Venous No growth after 48 hours. 01/14/25 07:19 Blood Culture - Preliminary Blood - Venous No growth after 48 hours. Discharge Plan Discharge Anticipated Discharge Date/Time: 01/14/25 14:05 Patient Disposition: Home, Self-Care Discharge Diagnosis: biliary dyskinesia, s/p laparoscopic cholecystectomy Referrals: Bridger Adame MD [Physician, General Surgery] - 1 Week Mackenzie Armstrong MD [Primary Care Provider, Medical] - 1 Week Discharge Medications: New docusate sodium [Colace] 100 mg capsule 100 mg PO BID Qty: 30 0RF oxycodone 5 mg tablet 5 mg PO Q4H PRN (Reason: pain (scale score 7-10)) Qty: 26 0RF Rx Instructions: Partial Fill upon patient request. Continued budesonide 32 mcg/actuation spray,non-aerosol 32 mcg intranasal DAILY escitalopram oxalate 10 mg tablet 10 mg PO DAILY budesonide-formoterol [Symbicort] 80-4.5 mcg/actuation HFA aerosol inhaler 2 inh inhalation DAILY multivitamin Tablet 1 tab PO DAILY emtricitabine-tenofovir (TDF) [Truvada] 200-300 mg tablet 1 tab PO DAILY Tivicay 50 mg tablet 50 mg PO DAILY Discharge Orders: Discharge Order (Routine); Ordered 01/14/25 Ordered By: Bridger Adame Diet: Advance to usual diet Activity on Discharge: No heavy lifting Stand Alone Forms: Patient Portal Discharge page, Work/School Release Print Language: Swedish Activity Restrictions/Additional Instructions: If the incision area is tender, you may apply an ice pack for short intervals (No more than 20 minutes on, followed by at least 20 minutes off). Do not apply heat. Do not use creams, lotions, or topical antibiotics. Ok to shower. Remove clear dressings 3 days following your procedure. You have steri strips (small white strips) covering your incision- these will fall off ~1 week. No heavy lifting (>10lbs) or strenuous activity! Take Tylenol Extra-strength 1-2 tabs every 6 hours for the first day, then as needed. Oxycodone every 6-8 hours as needed for pain. Colace 100 mg every day as needed for constipation. Follow up in office with Dr. Adame in 1 week. ([phone]) Call Your Doctor If: -Your temperature exceeds 101.5? F -You experience excessive pain or swelling -You have an unexpected reaction to medication -You have excessive bleeding -You experience continued vomiting/nausea -Your incision begins to separate -Your incision shows signs of infection such as increased redness, swelling, excessive pain, drainage (light blood or clear fluid is normal) or heat Care Plan Goals: Return to baseline health and resume normal activities following recovery period. Health Concerns: biliary dyskinesia, acute cholecystitis Plan of Treatment: s/p laparoscopic cholecystectomy follow up in the office in 1 week pain control resume home meds Assessment: Doing well post op. Discharge Date/Time: 01/14/25 14:52
== END 2025-01-14 14:52 | disposition home or self-care (01) | DRG 263 ==
LOC: HO.ED 17:32 → HO.EDOVER 18:58 → HO.S3 19:29
PROVIDERS: Emergency Medicine; Physician Assistant; Admitting Provider Surgery; Emergency Provider Emergency Medicine Emergency Medical Services; PCP Internal Medicine; Visit Provider Surgery
PROC: 0FT44ZZ Resection of Gallbladder, Percutaneous Endoscopic Approach (ICD-10-PCS; CPT 47562; principal; 2025-01-12 16:30)
DX: K80.00 Calculus of gallbladder with acute cholecystitis without obstruction (principal); K82.8 Other specified diseases of gallbladder; Z20.822 Contact with and (suspected) exposure to COVID-19; Z79.899 Other long term (current) drug therapy
CPT/HCPCS: 47562; 36415; 76700; 78227; 80048; 80053; 80076; 81001; 82272; 82947; 83605; 83690; 83735; 84484; 84702; 85025; 85379; 87040; 87502; 87635; 88304; 93005; 99221; 99285; A9537; J0131; J1171; J1308; J1885; J2003; J2250; J2270; J2405; J2543; J2704; J2805; J3010; J7120

== ENCOUNTER → 2025-01-11 05:19 | Outpatient (BNV) | payer OTHER, SELFPAY | PROVIDERS: Emergency Provider Emergency Medicine; PCP Internal Medicine; Visit Provider Internal Medicine Cardiovascular Disease | DX: R07.9 Chest pain, unspecified (principal) | CPT/HCPCS: 93010 ==

== ENCOUNTER → 2025-01-11 05:56 | Outpatient (BNV) | payer OTHER, SELFPAY | PROVIDERS: Emergency Provider Emergency Medicine Emergency Medical Services; PCP Internal Medicine; Visit Provider Surgery | DX: Z90.49 Acquired absence of other specified parts of digestive tract (principal); K80.00 Calculus of gallbladder with acute cholecystitis without obstruction | CPT/HCPCS: 47562; 99024; 99222; 99232 ==

== ENCOUNTER → 2025-01-11 06:24 | Outpatient (BNV) | payer OTHER, SELFPAY | PROVIDERS: Emergency Provider Emergency Medicine; PCP Internal Medicine; Visit Provider Radiology Diagnostic Radiology | DX: K82.8 Other specified diseases of gallbladder (principal); N28.1 Cyst of kidney, acquired | CPT/HCPCS: 76700; 78227 ==

== ENCOUNTER 2025-01-21 10:21 | Outpatient (AMB) | payer OTHER, SELFPAY ==
--- NOTE | 2025-01-21 10:46 | MHC.OFFVIS ---
Vital Signs 01/21/25 10:47 Weight 166 lb BP 112/71 Blood Pressure Location Rt brachial Position Sitting Pulse 81 Intake Visit Reasons: s/p lap ulises Intake Note: Patient here s/p Laparoscopic cholecystectomy. Patient c/o: on and off pain. Still taking Oxycodone as needed. C/o constipation but took OTC oral laxative. Surgery (): 01-12-2025 Chemistry Intern Required: Yes Information Interpreted: clinical only ([facility] [place] Allergies No Known Allergies Allergy (Verified 01/21/25 10:49) HPI HPI s/p lap ulises: Details: 39 year old female with recent hospitalization for RUQ pain with HIDA negative for acute cholecystitis however demonstrated biliary dyskinesia. She had continued constant RUQ pain and tenderness therefore underwent laparoscopic cholecystectomy on 01/12/25. She tolerated the procedure well but required two days for pain control and was discharged on POD #2. She reports feeling better overall. Her incisional pain is still present but overall improved. She is taking oxycodone only a few times a day now. She reports no BM for several days and took a laxative and has had one BM. She denies taking the colace that was prescribed at discharge. She reports some nausea after eating but this resolves after an hour. She denies fevers, chills, vomiting, diarrhea. [facility] Surgical History (Updated 01/21/25 @ 08:20 by SUDHEER Ring) Hx laparoscopic cholecystectomy (01/12/25) Social History Household Members: None Housing: Apartment Do you presently have visiting nurse or other home services: No Alcohol intake: current Alcohol intake frequency: holidays/special occasions only Patient Tobacco Use Status: Never used Tobacco service: No Review of Systems Const All systems reviewed & are unremarkable except as noted in HPI and below Physical Exam Vital Signs: Last Vital Signs Pulse 81 01/21/25 10:47 BP 112/71 01/21/25 10:47 Const General: comfortable, no acute distress, well developed and alert; No ill appearing Orientation/consciousness: patient oriented x3 Resp Effort & Inspection: normal respiratory effort GI Other: incisions well approximated, clean appearing, no surrounding erythema Inspection: No distended Palpation (GI): Soft to palpation, nontender and no guarding Percussion: Yes normal to percussion Skin General skin exam: no rashes or lesions noted and no jaundice Neuro General: patient oriented x3 and moves all extremities Results Reviewed Results Reviewed: Gallbladder, cholecystectomy: Subacute on chronic cholecystitis with focal cholesterolosis and cholelithiasis Assessment & Plan Assessment & Plan (1) S/P laparoscopic cholecystectomy: Code(s): Z90.49 - Acquired absence of other specified parts of digestive tract Category: Surgical Plan 39 year old female who is s/p laparoscopic cholecystectomy on 01/12/25 for biliary dyskinesia, acute cholecystitis. She tolerated the procedure well and continues to do fairly well post op. Her abdomen is benign with clean and well healed incisions without evidence of infection. She does have some ongoing nausea and constipation and she was encouraged to use colace twice a day as well as miralax while she is taking narcotics and until she begins to have normal bowel movements. Prescriptions were sent. She is to continue heavy lifting and strenuous lifting restrictions for another 2 weeks. She was instructed to follow up in 2 weeks. She is comfortable with the plan. Work note provided. Medications: New docusate sodium (Colace) 100 mg PO BID 30 caps 0RF polyethylene glycol 3350 (Miralax) 17 grams PO DAILY PRN 119 grams 0RF constipation Coding Level of Care Code Global (20610) Diagnoses S/P laparoscopic cholecystectomy Z90.49
[2025-01-21 10:47] VITALS: BP 112/71; PULSE 81
== END 2025-01-21 11:21 | disposition home or self-care (01) ==
PROVIDERS: PCP Internal Medicine; Visit Provider Physician Assistant Surgical
DX: Z90.49 Acquired absence of other specified parts of digestive tract (principal)
CPT/HCPCS: 99024

== ENCOUNTER 2025-02-07 10:46 | Outpatient (AMB) | payer OTHER, SELFPAY ==
--- NOTE | 2025-02-07 10:56 | A.OFFVIS_ITS ---
Vital Signs 02/07/25 11:07 Height 5 ft 1 in Weight 171 lb BMI 32.3 Intake Visit Reasons: s/p lap ulises Intake Note: Patient presents for post-op assessment status post lap ulises. Pt c/o; reports no complaints at this time pertaining to surgery. Sleeve Separator Required: Yes Sleeve Separator Language: [employer] Reviewer Services: Sleeve Separator Present Sleeve Separator Name: Higinio Information Interpreted: non-clinical & clinical Accompanied by: Self / Same As Patient Allergies No Known Allergies Allergy (Verified 02/07/25 11:08) HPI HPI s/p lap ulises: Details: [age] year female here for a postop visit. She underwent laparoscopic cholecystectomy with Dr. Adame as an inpatient for acute cholecystitis last 01/12/2025. She tolerated procedure well. She says she currently feels well and denies any significant complaints. She has good oral intake. [facility] Medical History (Updated 02/07/25 @ 11:09 by Attila Drummond MD) Gallstone Dysfunctional gallbladder Abdominal pain Acute cholecystitis due to biliary calculus Surgical History S/P laparoscopic cholecystectomy Hx laparoscopic cholecystectomy (01/12/25) Social History Household Members: None Housing: Apartment Do you presently have visiting nurse or other home services: No Alcohol intake: current Alcohol intake frequency: holidays/special occasions only Patient Tobacco Use Status: Never used Tobacco service: No Review of Systems Const Denies chills and Denies fever(s) Resp Denies cough GI Denies vomiting Physical Exam Vital Signs: BMI result Body Mass Index 32.3 Const General: comfortable and no acute distress Eyes Other: Anicteric sclerae Resp Effort & Inspection: normal respiratory effort GI Other: All incisions are well healed Palpation (GI): Soft to palpation, not firm, nontender and no guarding Assessment & Plan Assessment & Plan (1) Gallstone: Code(s): K80.20 - Calculus of gallbladder without cholecystitis without obstruction Category: Medical Qualifiers: Biliary obstruction: without biliary obstruction Plan: Status post laparoscopic cholecystectomy. She is doing very well. Her incisions are well healed. She has good oral intake I advised her to avoid lifting anything more than 20 lb for at least 2 more weeks. She can otherwise follow up with Dr. Adame on a p.r.n. basis. Her path report shows subacute on chronic cholecystitis Coding Level of Care Code Global (96128) Diagnoses Gallstone K80.20 Biliary obstruction: without biliary obstruction
[2025-02-07 11:07] VITALS: BMI 32.3
== END 2025-02-07 11:13 | disposition home or self-care (01) ==
LOC: HO.HGS 10:47
PROVIDERS: PCP Internal Medicine; Visit Provider Surgery
DX: K80.20 Calculus of gallbladder without cholecystitis without obstruction (principal)
CPT/HCPCS: 99024